=== PATIENT | female | born 1985 | race Caucasian/White ===

== ENCOUNTER 2022-12-09 09:18 | Emergency (ER) | payer MEDICAID, SELFPAY ==
[2022-12-09 09:36] VITALS: BP 103/65; PULSE 77; RESP 18; TEMP 36.3; O2SAT 97; BMI 29.4
--- NOTE | 2022-12-14 04:23 | ED_ITS ---
HPI - Eye Problem General Chief complaint: Eye Problems Stated complaint: Swollen eyes Time Seen by Provider: 12/09/22 11:46 History of Present Illness HPI Narrative: 37-year-old woman presenting to the emergency department with puffy swollen itchy irritated bilateral eyes. This began yesterday morning. Evening before had removed makeup though no new makeup for cleansers. I believe around that time also there was some exposure to a intimate lubricant that she is wondering if may have gotten to her eyes. She has not had any drainage. Has been trying chamomile tea compresses. Is not having significant pain. Discomfort though may have been alleviated somewhat with dosing of naproxen. No known allergies. Related Data Allergies Allergy/AdvReac Type Severity Reaction Status Date / Time No Known Drug Allergies Allergy Verified 12/09/22 09:52 Review of Systems Status of ROS: Reports: 6 or more systems reviewed and unremarkable except as noted in History and below PFSH PFSH Social History Smoking Status: Never smoker Do you use any of these nicotine containing products: None Second hand tobacco smoke exposure: No How often do you have a drink containing alcohol: monthly or less How many standard drinks containing alcohol do you have on a typical day: 3 or 4 How often do you have six or more drinks on one occasion: Less than monthly AUDIT-C Alcohol total score: 3 Non-prescribed substance use: denies use service: No Exam Narrative: Exam Narrative: Is pleasant. Breathing easily. Both eyes generally mildly swollen about the lids and orbital area. Only the skin. Faintly erythematous there are irregular mild papular eruptions. Extraocular movements are full and intact. There is no scleral injection. Mild nasopharyngeal congestion. Oropharynx is clear. Const: Documenting provider has reviewed patient's vital signs: yes Course Vital Signs Vital signs: Initial Vital Signs Temperature 97.4 F L 12/09/22 09:36 Temperature Source Temporal Artery Scan 12/09/22 09:36 Pulse Rate 77 12/09/22 09:36 Pulse Rhythm 12/09/22 09:36 Respiratory Rate 18 12/09/22 09:36 Blood Pressure 103/65 12/09/22 09:36 Blood Pressure Mean 77 12/09/22 09:36 Blood Pressure Position Sitting 12/09/22 09:36 Pulse Oximetry 97 12/09/22 09:36 Oxygen Delivery Method 12/09/22 09:36 Vital Signs Temperature 97.4 F L 12/09/22 09:36 Pulse Rate 77 12/09/22 09:36 Respiratory Rate 18 12/09/22 09:36 Blood Pressure 103/65 12/09/22 09:36 Pulse Oximetry 97 12/09/22 09:36 Oxygen Delivery Method 12/09/22 09:36 Temperature 97.4 F L 12/09/22 09:36 Pulse Rate 77 12/09/22 09:36 Respiratory Rate 18 12/09/22 09:36 Blood Pressure 103/65 12/09/22 09:36 Pulse Oximetry 97 12/09/22 09:36 Oxygen Delivery Method 12/09/22 09:36 MDM - Eye Problem MDM Narrative Medical decision making narrative: Does not appear to be involvement of conjunctiva or eyes themselves. Does appear to be limited to the surrounding skin. Recommending hydrocortisone cream See patient discharge plan Discharge Plan Discharge Clinical Impression: Allergic reaction Patient Disposition: Home, Self-Care Condition: Stable Additional Instructions: I would apply to the eyelids/skin surrounding your eyes 2.5% hydrocortisone cream if you can find it. 1% should help as well. Apply this 3 times a day for up to 5 days. Inside the eye I would lay 1 cm ribbon of generic eye ointment maybe 4 times daily as needed; though it appears that most of the problem is on the skin around your eye. I do not see evidence of cellulitis/bacterial secondary infection. Can discontinue the treatments above once feeling better. Maybe continue the hydrocortisone cream for a day beyond feeling/looking really better. Be seen for marked increase in swelling/redness/heat/pain. Aplicar?a a los p?rpados / piel que rodea los ojos crema de hidrocortisona al 2,5% si puede encontrarla. El 1% tambi?n deber?a ayudar. Aplicar esto 3 veces al d?a tate un m?ximo de 5 d?as. Dentro del toñito pondr?a valdez cinta de 1 cm de aziza?ento gen?rico para los ojos, usha vez 4 veces al d?a, seg?n fuera necesario; Aunque parece que la mayor parte del problema est? en la piel alrededor del toñito. No veo evidencia de celulitis/infecci?n secundaria bacteriana. Puede suspender los tratamientos anteriores valdez vez que se sienta mejor. Usha vez contin?e con la crema de hidrocortisona por un d?a m?s all? de sentirse / verse realmente mejor. Ser visto para un aumento marcado en la hinchaz?n / enrojecimiento / calor / dolor. Stand Alone Forms: [facility] Info Instructions
== END 2022-12-09 12:35 | disposition home or self-care (01) ==
LOC: ED 12:19
PROVIDERS: Emergency Provider Family Medicine; PCP Family Medicine
DX: H57.89 Other specified disorders of eye and adnexa (principal); T78.40XA Allergy, unspecified, initial encounter
CPT/HCPCS: 99283; T1013

== ENCOUNTER 2023-05-02 10:43 | Emergency (ER) | payer MEDICAID, SELFPAY ==
[2023-05-02] VITALS (7 sets, daily range): BP systolic 105–117; BP diastolic 59–69; PULSE 108–120; RESP 20–24; TEMP 37–38.5; O2SAT 95–97
--- NOTE | 2023-05-02 11:35 | CRLHL7_ITS ---
For Patients: As a result of the Century Cures Act, medical imaging exams and procedure reports are released immediately into your electronic medical record. You may view this report before your referring provider. If you have questions, please contact your health care provider. INDICATION: Right lower quadrant pain. History of cholecystectomy and . TECHNIQUE: CT of the abdomen and pelvis with 72 cc Isovue 370 IV contrast. Coronal and sagittal reconstructions. COMPARISON: CT of the abdomen and pelvis 03/02/2022. FINDINGS: The liver is enlarged measuring 19.8 cm in length. Moderate diffuse hepatic steatosis. The spleen is enlarged measuring 14.2 cm in AP dimension. Cholecystectomy. No biliary dilation. The pancreas and adrenal glands are negative. Hepatic and portal veins are patent. There are patchy areas of decreased attenuation throughout the right kidney suspicious for pyelonephritis. No discrete renal abscess. Minimal perinephric fat stranding with urothelial enhancement of the right renal pelvis and right ureter. Normal enhancement of the left kidney. No hydronephrosis or ureteral dilation. No obstructing urinary calculi identified. Mild bladder wall thickening. No small bowel dilation. Mild amount of stool throughout the colon. Negative appendix. No intraperitoneal free air or fluid. No lymphadenopathy. No adnexal mass. Uterus is unremarkable. The bones are unremarkable. Mild bibasilar atelectasis. IMPRESSION: 1. Findings suspicious for right-sided pyelonephritis. Mild bladder wall thickening. Correlate with urinalysis. 2. Hepatosplenomegaly with moderate hepatic steatosis. Please note that all CT scans at this facility use dose modulation, iterative reconstruction, and/or weight-based dosing when appropriate to reduce radiation dose to as low as reasonably achievable. Dictated by Lindsay Jay MD @ 05/02/2023 2:18:19 PM (Electronically Signed)
--- NOTE | 2023-05-02 11:35 | CRLHL7_ITS ---
For Patients: As a result of the Century Cures Act, medical imaging exams and procedure reports are released immediately into your electronic medical record. You may view this report before your referring provider. If you have questions, please contact your health care provider. INDICATION: Dizziness. COMPARISON: None. TECHNIQUE: CT of the head without IV contrast. Coronal and sagittal reconstructions. FINDINGS: No intracranial hemorrhage, mass effect, or evidence of acute infarct. No midline shift. No abnormal extra-axial fluid collections. Normal caliber ventricular system. Physiologic basal ganglia calcifications. Orbits and extraocular muscles are symmetric. The visualized paranasal sinuses and mastoid air cells are clear. No acute fracture identified. Soft tissues are unremarkable. IMPRESSION: No acute intracranial findings. Please note that all CT scans at this facility use dose modulation, iterative reconstruction, and/or weight-based dosing when appropriate to reduce radiation dose to as low as reasonably achievable. Dictated by Lindsay Jay MD @ 05/02/2023 2:47:53 PM (Electronically Signed)
--- NOTE | 2023-05-02 11:47 | ED_ITS ---
HPI - General Adult General Time Seen by Provider: 11:30 Date Seen: 05/02/23 Chief complaint: Abdominal Pain Stated complaint: Post-op abdominal pain, vomiting Time Seen by Provider: 05/02/23 11:04 Source: patient and character impersonator Mode of arrival: ambulatory History of Present Illness HPI narrative: Patient is a 38-year-old female with no pertinent medical problems presenting to emergency department for abdominal pain and dizziness. Patient states for the past 2 days she has been having dizziness and right lower quadrant pain. She states it all started after she took a medication as given to her after she had a biopsy of a mass to her left arm. Symptoms are been getting worse. She is up near drinking much because of the abdominal pain and nausea. She has not vomited yet. Patient states she has never had symptoms like this before. No previous abdominal surgeries. She states the dizziness goes away when she close her eyes. Whenever she tries to open them she gets very dizzy. Patient states it feels like the room is spinning. Is also complaining of a headache. Denies weakness, numbness, lightheadedness, chest pain, shortness of breath. She has had intermittent fevers. Has not taken any medication for it today. Related Data Home Medications Medication Instructions Recorded Confirmed citalopram 20 mg tablet mg PO 05/02/23 trazodone 50 mg tablet 50 mg PO QPM 05/02/23 05/02/23 Previous Rx's Medication Instructions Recorded meclizine 25 mg tablet 25 mg PO QID #28 tabs 05/02/23 ondansetron 4 mg disintegrating 4 mg PO Q6H PRN nausea and 05/02/23 tablet vomiting #20 tabs sulfamethoxazole 800 1 tab PO BID #28 tabs 05/02/23 mg-trimethoprim 160 mg tablet (Bactrim DS) Allergies Allergy/AdvReac Type Severity Reaction Status Date / Time No Known Drug Allergies Allergy Verified 12/09/22 09:52 Review of Systems Status of ROS: Reports: 10 or more systems reviewed and unremarkable except as noted in History and below [facility] Social History Smoking Status: Never smoker Do you use any of these nicotine containing products: None Second hand tobacco smoke exposure: No How often do you have a drink containing alcohol: monthly or less How many standard drinks containing alcohol do you have on a typical day: 3 or 4 How often do you have six or more drinks on one occasion: Less than monthly AUDIT-C Alcohol total score: 3 Non-prescribed substance use: denies use service: No Exam Narrative: Exam Narrative: Const: Well-nourished, Well-developed, in mild distress Eyes: PERRL, no conjunctival injection, and symmetrical lids ENMT: Atraumatic external nose and ears. Moist mucous membranes. Neck: Symmetric, trachea midline, No thyromegaly. CVS: RRR, No murmurs or gallops. Peripheral pulses 2+ and equal in all extremities RESP: Unlabored respiratory effort. Clear to auscultation bilaterally. GI: Nontender/Nondistended, No rebound or guarding. MSK:Extremities w/o deformity, Normal Active ROM Skin: Warm, Dry. No rashes or lesions. Neuro: Normal Muscle tone, Cranial nerves 2-12 grossly intact, normal [id number], normal [id number], normal gait, normal strength 5/5 upper lower extremities bilaterally, normal sensation upper and lower extremities bilaterally, normal rapid alternating movements. Hints exam shows normal test of skew and head impulse but she does have bidirectional nystagmus Psych: Awake, Alert, & Oriented x3. Appropriate mood and affect. Const: Vital Signs, click to edit/add: Vital Signs - 24 hr 05/02/23 11:05 05/02/23 13:35 05/02/23 14:00 Temperature 101.1 F H 99.0 F Pulse Rate [Right Pulse Oximeter] 120 H 110 H Respiratory Rate 20 24 Blood Pressure [Ri ght Upper Arm] 112/69 106/59 L 105/62 Pulse Oximetry 95 96 Oxygen Delivery Me thod Room Air Room Air 05/02/23 14:30 05/02/23 14:53 05/02/23 15:30 Temperature 98.6 F 98.8 F Pulse Rate [Right Pulse Oximeter] 108 H 120 H Respiratory Rate Blood Pressure [Ri ght Upper Arm] 117/67 Pulse Oximetry 96 97 Oxygen Delivery Me thod Room Air 05/02/23 16:35 Temperature 101.3 F H Pulse Rate [Right Pulse Oximeter] Respiratory Rate Blood Pressure [Ri ght Upper Arm] Pulse Oximetry Oxygen Delivery Me thod Course Vital Signs Vital signs: Initial Vital Signs Temperature 101.1 F H 05/02/23 11:05 Temperature Source Temporal Artery Scan 05/02/23 11:05 Pulse Rate 120 H 05/02/23 11:05 Respiratory Rate 20 05/02/23 11:05 Blood Pressure 112/69 05/02/23 11:05 Blood Pressure Mean 83 05/02/23 11:05 Blood Pressure Position Sitting 05/02/23 11:05 Pulse Oximetry 95 05/02/23 11:05 Oxygen Delivery Method Room Air 05/02/23 11:05 Vital Signs Temperature 101.1 F H 05/02/23 11:05 Pulse Rate 120 H 05/02/23 11:05 Respiratory Rate 20 05/02/23 11:05 Blood Pressure 112/69 05/02/23 11:05 Pulse Oximetry 95 05/02/23 11:05 Oxygen Delivery Method Room Air 05/02/23 11:05 Temperature 101.3 F H 05/02/23 16:35 Pulse Rate 120 H 05/02/23 15:30 Respiratory Rate 24 05/02/23 13:35 Blood Pressure 117/67 05/02/23 14:30 Pulse Oximetry 97 05/02/23 15:30 Oxygen Delivery Method Room Air 05/02/23 14:30 Medical Decision Making MDM Narrative Medical decision making narrative: Patient is a 38-year-old female with no pertinent medical issues presenting to the emergency department for dizziness and Crestor quadrant abdominal pain. She is more concerned about the dizziness and states she has been having worsening symptoms for the past 2 days since she took a citalopram tablet. She states this 1st time she has ever taken it. It was recently prescribed her by her doctor. She states she has never had symptoms this bad before. She is also having right lower quadrant abdominal pain with an intermittent fever and nausea. She has not vomited. Meds tonight you are drinking much as normal. I did to enhance examined she has by traction and statements. This was concerning for central cause of her symptoms. I did order head CT. Also had abdominal pelvis CT with IV contrast to look for signs of appendicitis. She meets meets SIRS so lactate, CBC, CMP, urinalysis, troponin, EKG were all ordered. Also will give her Toradol for the pain, Zofran for the nausea, and meclizine for the dizziness. A L of normal saline was given. She is not hypotensive and 30 mL/kilos of fluids were not necessary at this time. Patient's lab work returned showing a lactic acid of 1.1. She has a white blood cell count of 13. Her sodium and potassium was slightly low and potassium was replenished. After the medication the patient it was starting to feel better and was less dizzy. She cannot keep her eyes open as long as the lights are off. The lights turned on she does start to get dizzy again. She states she feels asymptomatic right now at this time but does note symptoms come back whe never she turns her head to the right. After speaking to her more notes she has always had this take this like this. She has had for as long as he has no nourished she has seen several doctors for it and no one knows why it occurs but this is her normal. Patient states she has been having some issues with vertigo for the past few weeks but went away until suddenly came back a couple days ago. Considering all this it makes me much more likely to believe she has a peripheral vertigo versus central vertigo. The head CT has been ordered though. CT of the head returned showing no concerning abnormalities. I attempted the Ricardo's maneuver but patient was unable to tolerate it. Patient's CT scan of the abdomen pelvis shows concern for pyelonephritis. We did do a urinalysis which shows signs of a UTI. With all this and her fever I do find it necessary to start on antibiotics for pyelonephritis. She is otherwise looking well and healthy. Filled the symptoms could be exacerbating her vertigo. I did speak to her about admission versus discharge for her symptoms. They state they were comfortable discharging home and will see her primary care provider on Friday or Friday. I gave her strict return precautions. I discharged her home with meclizine, Bactrim, Zofran. Patient both state they understand and agree with this plan. Lab Data Labs: Lab Results 05/02/23 05/02/23 05/02/23 Range/Units 12:25 12:26 14:06 WBC 13.13 H (4.50-11.00) K/uL RBC 3.23 L (4.00-5.20) m/uL Hgb 9.7 L (12.0-16.0) gm/dL Hct 27.5 L (33.0-51.0) % MCV 85 (80-100) fL MCH 30 (26-34) pg MCHC 35 (32-36) gm/dL RDW Coeff of [place]hell 13.5 (11.5-15.5) % Plt Count 199 (140-440) K/uL Neut % (Auto) 81.3 H (42.0-72.0) % Lymph % (Auto) 9.7 L (20-44) % [place] % (Auto) 8.3 (0.0-11.0) % Eos % (Auto) 0.1 (0.0-7.0) % Baso % (Auto) 0.4 (0.0-3.0) % Neut # (Auto) 10.70 H (1.7-7.0) K/uL Lymph # (Auto) 1.30 (0.90-2.90) K/uL [place] # (Auto) 1.10 H (0.00-0.90) K/UL Eos # (Auto) 0.00 (0.00-0.50) K/uL Baso # (Auto) 0.10 (0.00-0.30) K/uL Abs Immat Gran (auto) 0.00 (0.00-0.30) K/uL Imm/Tot Granulo (auto) 0.2 % Sodium 133 L (135-149) mmol/L Potassium 3.2 L (3.6-5.1) mmol/L Chloride 100 (96-114) mmol/L Carbon Dioxide 25 (20-32) mmol/L BUN 5 (5-24) mg/dL Creatinine 0.5 (0.5-1.5) mg/dL Estimated GFR 123 ml/min Glucose 136 H (60-115) mg/dL Lactate 1.1 (0.5-1.9) mmol/L Calcium 8.9 (8.4-10.6) mg/dL Magnesium 1.8 (1.5-2.6) mg/dL Total Bilirubin 1.4 (0.1-1.5) mg/dL AST 51 H (12-35) U/L ALT 95 H (4-35) U/L Alkaline Phosphatase 82 (40-150) U/L Troponin I < 0.01 L (0.01-0.04) ng/mL Total Protein 7.5 (6.0-8.3) g/dL Albumin 4.1 (3.3-5.0) g/dL HCG, Qual Negative (Negative) Urine Color (Yellow) Urine Appearance (Clear) Urine pH (5.0-8.5) Ur Specific [place] (1.000-1.030) Urine Protein (Negative) Urine Glucose (UA) (Negative) Urine Ketones (Negative) Urine Blood (Negative) Urine Nitrite (Negative) Urine Bilirubin (Negative) Urine Urobilinogen (0.2-1.0) Ur Leukocyte Esterase (Negative) Urine RBC (0-2) Urine WBC (0-5) Ur Squamous Epith Cells (None-Few) Urine Bacteria (None) Urine Yeast (None) Lab Acknowledgement Test Added 05/02/23 05/02/23 Range/Units 14:06 15:10 WBC (4.50-11.00) K/uL RBC (4.00-5.20) m/uL Hgb (12.0-16.0) gm/dL Hct (33.0-51.0) % MCV (80-100) fL MCH (26-34) pg MCHC (32-36) gm/dL RDW Coeff of Michell (11.5-15.5) % Plt Count (140-440) K/uL Neut % (Auto) (42.0-72.0) % Lymph % (Auto) (20-44) % [place] % (Auto) (0.0-11.0) % Eos % (Auto) (0.0-7.0) % Baso % (Auto) (0.0-3.0) % Neut # (Auto) (1.7-7.0) K/uL Lymph # (Auto) (0.90-2.90) K/uL [place] # (Auto) (0.00-0.90) K/UL Eos # (Auto) (0.00-0.50) K/uL Baso # (Auto) (0.00-0.30) K/uL Abs Immat Gran (auto) (0.00-0.30) K/uL Imm/Tot Granulo (auto) % Sodium (135-149) mmol/L Potassium (3.6-5.1) mmol/L Chloride (96-114) mmol/L Carbon Dioxide (20-32) mmol/L BUN (5-24) mg/dL Creatinine (0.5-1.5) mg/dL Estimated GFR ml/min Glucose (60-115) mg/dL Lactate (0.5-1.9) mmol/L Calcium (8.4-10.6) mg/dL Magnesium (1.5-2.6) mg/dL Total Bilirubin (0.1-1.5) mg/dL AST (12-35) U/L ALT (4-35) U/L Alkaline Phosphatase (40-150) U/L Troponin I (0.01-0.04) ng/mL Total Protein (6.0-8.3) g/dL Albumin (3.3-5.0) g/dL HCG, Qual (Negative) Urine Color Yellow (Yellow) Urine Appearance Slightly Cloudy A (Clear) Urine pH 7.0 (5.0-8.5) Ur Specific [place] 1.010 (1.000-1.030) Urine Protein 1+ A (Negative) Urine Glucose (UA) Negative (Negative) Urine Ketones Negative (Negative) Urine Blood 1+ A (Negative) Urine Nitrite Positive A (Negative) Urine Bilirubin Negative (Negative) Urine Urobilinogen 1.0 (0.2-1.0) Ur Leukocyte Esterase 2+ A (Negative) Urine RBC 0-2 (0-2) Urine WBC 25-50 A (0-5) Ur Squamous Epith Cells Moderate A (None-Few) Urine Bacteria Many A (None) Urine Yeast Few A (None) Lab Acknowledgement Test Added Discharge Plan Discharge Clinical Impression: Pyelonephritis Benign paroxysmal positional vertigo Qualifiers: Laterality: right Qualified Code(s): H81.11 - Benign paroxysmal vertigo, right ear Patient Disposition: Home, Self-Care Condition: Improved Instructions: Kidney Infection (ED), Benign Paroxysmal Positional Vertigo (DC) Additional Instructions: Follow-up with your primary care provider early next week preferably Friday or Friday. I prescribed you some meclizine which is for the vertigo. Take that 4 times a day for 7 days or until symptoms are resolved. I gave you Bactrim for the kidney infection. Take that for 14 days twice a day. Make sure you take all of the Bactrim. Do not stop the prescription early. I also prescribed use Zofran for your nausea. Taken as needed. Return immediately for any worsening symptoms. Glenn valdez mary anne de seguimiento con ge proveedor de atenci?n primaria a principios de la pr?xima semana, preferiblemente el lunes o el shelly. Te recet? un poco de meclizina, que es para el v?rtigo. T?hdez 4 veces al d?a tate 7 d?as o hasta que se resuelvan los s?ntomas. Te di Bactrim para la infecci?n renal. T?hdez tate 14 d?as dos veces al d?a. Aseg?rese de ulices todo el Bactrim. No suspenda la receta antes de tiempo. Tambi?n le recet? el uso de Zofran para lashae n?useas, es valdez pastilla que se desvuelve de bajo de la lengua. Tomalo seg?n sea necesario, cada 6 horas. Regrese inmediatamente para cualquier empeoramiento de los s?ntomas. Prescriptions: New meclizine 25 mg tablet 25 mg PO QID Qty: 28 0RF sulfamethoxazole-trimethoprim [Bactrim DS] 800-160 mg tablet 1 tab PO BID Qty: 28 0RF ondansetron 4 mg tablet,disintegrating 4 mg PO Q6H PRN (Reason: nausea and vomiting) Qty: 20 0RF No Action trazodone 50 mg tablet 50 mg PO QPM citalopram 20 mg tablet PO Follow Up/Referrals: Charlene Parry MD [Primary Care Provider] - [facility]: [facility] Inst[facility]
[2023-05-02] MEDS: MECLIZINE HCL 25 MG TABLET PO ×2 (12:02→16:14)
[2023-05-02] MEDS: 0.9 % SODIUM CHLORIDE 1000 ml 1,000 ML IV (12:25)
[2023-05-02] MEDS: KETOROLAC 15 MG/ML inj IVP (12:25)
[2023-05-02] MEDS: ONDANSETRON 2 MG/ML inj 4 MG IVP (12:26)
[2023-05-02 12:35] LABS: Lactate* 1.1 mmol/L (0.5-1.9)
[2023-05-02 13:01] LABS: Albumin* 4.1 g/dL (3.3-5.0); Basophils Percent Auto 0.4 % (0.0-3.0); Chloride* 100 mmol/L (96-114); Eosinophils Percent Auto 0.1 % (0.0-7.0); Hematocrit 27.5 % (33.0-51.0); Hemoglobin* 9.7 gm/dL (12.0-16.0); Immature Granulocytes Pct Auto 0.2 %; Lymphocytes Percent Auto 9.7 % (20-44); Mean Corpuscular HGB Conc 35 gm/dL (32-36); Mean Corpuscular Hemoglobin 30 pg (26-34); Mean Corpuscular Volume 85 fL (80-100); Monocytes Percent Auto 8.3 % (0.0-11.0); Neutrophils Percent Auto 81.3 % (42.0-72.0); Platelet Count* 199 K/uL (140-440); RDW Coefficient of Variation % 13.5 % (11.5-15.5); Red Blood Count 3.23 m/uL (4.00-5.20); Sodium* 133 mmol/L (135-149); White Blood Count* 13.13 K/uL (4.50-11.00)
[2023-05-02 13:02] LABS: Potassium* 3.2 mmol/L (3.6-5.1)
[2023-05-02 13:04] LABS: Alanine Aminotransferase* 95 U/L (4-35); Alkaline Phosphatase* 82 U/L (40-150); Aspartate Amino Transferase* 51 U/L (12-35); Bilirubin Total* 1.4 mg/dL (0.1-1.5); Blood Urea Nitrogen* 5 mg/dL (5-24); Calcium* 8.9 mg/dL (8.4-10.6); Carbon Dioxide* 25 mmol/L (20-32); Creatinine* 0.5 mg/dL (0.5-1.5); Estimated Glomerular Filt Rate 123 ml/min; Glucose* 136 mg/dL (60-115); Total Protein* 7.5 g/dL (6.0-8.3)
[2023-05-02 13:06] LABS: Slide Review Reflex No
[2023-05-02 13:18] LABS: Troponin I* < 0.01 ng/mL (0.01-0.04)
[2023-05-02] MEDS: LACTATED RINGERS 1000 ML 1,000 ML IV (13:56)
[2023-05-02 14:15] LABS: HCG Qualitative Serum* Negative (Negative)
[2023-05-02 14:16] LABS: Magnesium* 1.8 mg/dL (1.5-2.6)
[2023-05-02] MEDS: POTASSIUM CHLORIDE 10 MEQ CAPSULE ER 40 MEQ PO (14:49)
[2023-05-02 15:21] LABS: Appearance Urine Slightly Cloudy (Clear); Bilirubin Urine Negative (Negative); Blood Urine 1+ (Negative); Color Urine Yellow (Yellow); Glucose Urine Negative (Negative); Ketones Urine Negative (Negative); Leukocyte Esterase Urine 2+ (Negative); Nitrite Urine Positive (Negative); Protein Urine 1+ (Negative)
[2023-05-02 15:31] LABS: Bacteria Urine Many; RBC Urine 0-2 (0-2); Squamous Epithelial Cell Urine Moderate (None-Few); WBC Urine 25-50 (0-5)
--- NOTE | 2023-05-04 13:45 | ED.NURSE ---
Call to patient to discuss urine culture results. Discussed that pt's infection is resistant to Bactrim, which patient has been taking. Patient verbalizes understanding that she will switch to Keflex 500 mg, three times a day, for 10 days. Pt asks if she has to space pills apart throughout the day. Skate Boarder instructs pt to try to take pills 8 hours apart and with food if she prefers. Pt states she would like Keflex prescription sent to [facility] in [place]. Patient verbalizes understanding that news writer will call prescription in, pt will pick it up today, and pt will no longer take old prescription for Bactrim.
== END 2023-05-02 16:35 | disposition home or self-care (01) ==
PROVIDERS: Emergency Provider Student in an Organized Health Care Education/Training Program; PCP Family Medicine
DX: H81.11 Benign paroxysmal vertigo, right ear (principal); N10 Acute pyelonephritis
CPT/HCPCS: 36415; 70450; 74177; 80053; 81001; 83605; 83735; 84484; 84703; 85025; 87040; 87086; 87186; 96374; 96375; 99283; 99284; A9270; J1885; J2405; J7030; J7120; Q9967

== ENCOUNTER 2024-12-13 09:26 | Emergency (ER) | payer MEDICAID, SELFPAY ==
--- OUTSIDE RECORDS SUMMARY | 2024-12-13 09:29 | XMS_ITS | Clinical Summary ---
Author Organization [facility] Address [address] [place] [id number] Care Team Providers Care Deicer Repairer Pneumatic Name Role Phone Charlene Parry MD Primary Care Provider [phone] Allergies Active Allergy Reactions Criticality Noted Date Comments Naproxen Edema High 03/02/2022 Medications meclizine (ANTIVERT) 25 mg tabletIndicatio ns:Benign paroxysmal vertigo, bilateral Take 1 Tablet (25 mg) by mouth 3 times daily if needed for Vertigo. 30 Tablet 4 12/08/19 25 Discontinu ed(*Patien t states no longer taking) hydrOXYzine pamoate (VISTARIL) 25 mg capsuleIndicati ons:Anxiety and depression,Diff iculty sleeping Take 1-2 Capsules (25-50 mg) by mouth at bedtime if needed for Anxiety (sleep, anxiety). 90 Capsule 4 12/08/19 25 Discontinu ed(*Patien t states no longer taking) citalopram (CELEXA) 20 mg tabletIndicatio ns:Adjustment insomnia,Memory changes,Stress and adjustment reaction Take 1 Tablet (20 mg) by mouth once daily. 90 Tablet 3 4 12/08/19 25 Discontinu ed(*Patien t states no longer taking) cholecalciferol (VITAMIN D3) 50,000 unit capsuleIndicati ons:Vitamin D deficiency Take 1 Capsule (50,000 units) by mouth once weekly. 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 pylori infection 12/15/2018 Overview (12/15/2018): EGD 12/2018 H pylori infection History of delivery, currently 05/20/2017 Overview (07/15/2017): Estimated Date of Delivery: 08/01/17 Patient's last menstrual period was 10/12/2016 (exact date). Last Tdap- 05/06/17 Last Flu vaccine- 01/03/17 No Known Allergies Obstetric History T2 L2 SAB0 TAB0 Ectopic0 Multiple0 Live Births0 # Outcome Date GA Lbr Lazaro/2nd Weight Sex Delivery Anes PTL Lv 4 Current 3 Term 10/09/09 M 2 Term 09/29/06 M 1 SAB Component Latest Ref Rng & Units 01/01/2017 01/01/2017 01/01/2017 4:50 PM 4:50 PM 4:50 PM HEMOGLOBIN 12.0 - 16.0 g/dL 11.5 (L) MCV 80 - 100 fL 87 ANTIBODY SCREEN Negative Negative SPECIMEN EXPIRATION DATE/TIME 01/04/17 23:59 RUBELLA IGG ANTIBODY Positive 8.33 GLUCOSE,GESTATIONAL 65 - 139 mg/dL PATIENT STATUS HIV-1/HIV-2 ANTIBODY Non-Reactive Non-Reactive ABORH B Rh Positive HBSAG Nonreactive Nonreactive TREPONEMA PALLIDUM Negative Negative HEMOGLOBIN A1C SCREENING <6.4 % 5.2 CHLAMYDIA PROBE GLUC ANAND,FAST (GEST) 65 - 95 mg/dL GLUC ANAND,1HR (GEST) 65 - 180 mg/dL Culture Component Latest Ref Rng & Units 01/03/2017 02/11/2017 05/06/2017 HEMOGLOBIN 12.0 - 16.0 g/dL 10.2 (L) 11.1 (L) MCV 80 - 100 fL 88 90 ANTIBODY SCREEN Negative SPECIMEN EXPIRATION DATE/TIME RUBELLA IGG ANTIBODY GLUCOSE,GESTATIONAL 65 - 139 mg/dL 165 (H) PATIENT STATUS NON-FASTING HIV-1/HIV-2 ANTIBODY Non-Reactive ABORH HBSAG Nonreactive TREPONEMA PALLIDUM Negative HEMOGLOBIN A1C SCREENING <6.4 % CHLAMYDIA PROBE Negative GLUC ANAND,FAST (GEST) 65 - 95 mg/dL GLUC ANAND,1HR (GEST) 65 - 180 mg/dL Culture Component Latest Ref Rng & Units 05/09/2017 07/01/2017 HEMOGLOBIN 12.0 - 16.0 g/dL MCV 80 - 100 fL ANTIBODY SCREEN Negative SPECIMEN EXPIRATION DATE/TIME RUBELLA IGG ANTIBODY GLUCOSE,GESTATIONAL 65 - 139 mg/dL PATIENT STATUS HIV-1/HIV-2 ANTIBODY Non-Reactive ABORH HBSAG Nonreactive TREPONEMA PALLIDUM Negative HEMOGLOBIN A1C SCREENING <6.4 % CHLAMYDIA PROBE GLUC ANAND,FAST (GEST) 65 - 95 mg/dL 78 GLUC ANAND,1HR (GEST) 65 - 180 mg/dL 192 (H) Culture No Group B Streptococcus isolated. Past Medical History: Diagnosis Date Encounter for supervision of other normal , first trimester 01/01/2017 Past Surgical History: Procedure Laterality Date SECTION x2 No data on file. Problems (from 01/01/17 to present) No problems associated with this episode. America Mariano RNC.....07/15/2017 2:58 PM Encounter for supervision of other normal , first trimester 01/01/2017 Delayed gastric emptying 11/12/2016 Encounters Date Type Department Care Team Description 12/13/2024 Nurse Triage [address] [address] Charlene Parry MD Diarrhea 12/08/2024 1:00 PM SPREADER Ancillary Procedure [facility] [address] [place] [address] Arrived 12/08/2024 11:10 AM SPREADER Office Visit [address] [address] Lilliana Ellis MD Vaginal Itching (6 days ) 12/08/2024 Travel 12/06/2024 Nurse Triage [address] [address] Charlene Parry MD Vaginal Problem from Last 3 Months Immunizations Name Administration Dates Next Due COVID-19 VACCINE SPIKEVAX (M ODERNA 50MCG/0.5ML) 12YO+ PFS 08/03/2024 COVID-19 vaccine (SnaptripBio NTech 30mcg/0.3mL) PF, MDV 10/11/2021 INFLUENZA, IIV3 PF (AGE >= 6 MO) 08/03/2024 Influenza, IIV4 07/15/2023,,07/25/2020,01/04/20 17 Tdap 05/06/2017 Family History Medical History Relation Name Comments Diabetes Father Autoimmune disease No Family History Cancer No Family History Relation Name Status Comments Father Social History Tobacco Use Types Packs/Day Years Used Date Smoking Tobacco: Never Smokeless Tobacco: Never Tobacco Cessation:Counseling Given: Yes Alcohol Use Standard Drinks/Week Comments No 0 (1 standard drink = 0.6 oz pur e alcohol) special occasions PHQ-2 Answer Date Recorded PHQ-2 TOTAL SCORE 3 06/18/2023 Social Connections Answer Date Recorded Do you often feel lonely or isolated from those around you? 0 12/08/2024 Financial Resource Strain Answer Date R ecorded Difficulty of Paying Living Expenses Not on file 12/08/2024 Difficulty of Paying Living Expenses 3 12/08/2024 Food Insecurity Answer Date Recorded Do you worry your food will run out before you are able to buy more? 2 12/08/2024 Transportation Needs Answer Date Record ed Does lack of transportation keep you from medica l appointments? 2 12/08/2024 Does lack of transportation keep you from work, meetings or getting things that you need? 2 12/08/2024 Housing Stability Answer Date Recorded What is your housing situation today? 1 12/08/2024 Utilities Answer Date Recorded Do you have trouble paying f or utilities (for example, heat, electricity, water, phone)? 2 12/08/2024 Comments No Sex and Gender Information Value Date Recorded Sex Assigned at Not on file Legal Sex Female 4:02 PM SPREADER Gender Identity Not on file Sexual Orientation Not on file Obstetrics History Para Term AB IAB SAB Ectopic Multiple Livin g Live Births 4 2 2 1 1 2 Date Outcome GA Total Labor Labor/2nd/3rd Weight Sex Type Anes PTL Nancy A1 A5 Name Clin SAB 006 Term M C-Sect ion 009 Term M C-Sect ion Last Filed Vital Signs Vital Sign Reading Time Taken Comments Blood Pressure 105/69 12/08/2024 11:04 AM SPREADER Pulse 87 12/08/2024 11:04 AM SPREADER Temperature 37 C (98.6 F) 02/16/2019 2:08 PM CDT Respiratory Rate 18 11/27/2018 10:02 AM SPREADER Oxygen Saturation 99% 12/08/2024 11:04 AM SPREADER Inhaled Oxygen Concentration - - Weight 67.1 kg (148 lb) 12/08/2024 11:04 AM SPREADER Height 147.3 cm (4' 10) 06/18/2023 9:51 AM CDT Body Mass Index 30.93 06/18/2023 9:51 AM CDT Plan of Treatment Upcoming Encounters Date Type Department Care Team (Late st Contact Info) Description 12/29/2024 11:15 AM CDT Office Visit [facility] [address] [place] [address] Charlene Parry MD [address] [place] [address] Health Maintenance Due Date Last Done Comments BMI (ht and wt on same day) for age 18+ 09/10/2022 09/10/2021, 08/07/2021, 07/25/2020, Additional history exists Depression screening for age 12+ 06/20/2024 06/20/2023, 06/19/2023, 06/18/2023, Additional history exists Pap test for age 21-65 08/07/2026 1, 08/07/2021, 01/03/2017 Tetanus booster 05/06/2027 05/06/2017 Tdap Completed 05/06/2017 HIV for age 15-65 Completed 10/02/2021, 01/01/2017 Hepatitis C screening for age 18-79 Completed 06/18/2023 COVID-19 vaccine series Completed 08/03/20 24, 10/11/2021, 03/08/2021, Additional history exists Influenza for age 9-49 Completed 4, 07/15/2023, 07/31/2021, Additional history exists Pneumococcal series for age 6-49 Aged Out No longer eligible based on patient's age to complete this topic Procedures Procedure Name Priority Date/Time Associated Diagnosis Comments CT ABDOMEN PELVIS W STAT 12/08/2024 1 2:52 PM SPREADER Abdominal pain, RLQ (right lower quadrant) GC CHLAMYDIA TRACH PROBE Routine 12/08/2024 12:28 PM SPREADER Vaginal discharge TRICHOMONAS, JACKSON, AND BACTERIAL VAGINOSIS BY ZEN Routine 12/08/2024 12:28 PM SPREADER Vaginal discharge ANTI HCV Routine 06/18/2023 10:25 AM CDT Need for hepatitis C screening test ANTI HIV 1/2 Routine 10/02/2021 2:01 PM SPREADER Lymphadenopathy HPV HIGH RISK Routine 08/07/2021 1:45 PM CDT Screening for cervical cancer from Last 3 Months or Most Recently Relevant to Health Maintenance Results * CT ABDOMEN PELVIS W (12/08/2024 12:52 PM SPREADER) Anatomical Region Laterality Modality Abdomen, Pelvis, AORTA, LIVER, SPLEEN Computed Tomography 12/08/2024 1:07 PM SPREADER Impressions 12/08/2024 1:07 PM SPREADER 1. Normal appendix. No acute appendicitis. 2. Questionable wall thickening and hyperenhancement involving loops of nondistended, fluid-filled small bowel diffusely, raising the possibility of an underlying infectious versus inflammatory enteritis. No bowel obstruction. 3. Otherwise, no acute abdominopelvic findings. 4. Diffuse hepatic steatosis. Please note that all CT scans at this facility use dose modulation, iterative reconstruction, and/or weight-based dosing when appropriate to reduce radiation dose to as low as reasonably achievable. Dictated by Kranthi Siddiqui MD @ 12/08/2024 1:07:17 PM (Electronically Signed) Narrative 12/08/2024 1:07 PM SPREADER For Patients: As a result of the Century Cures Act, medical imaging exams and procedure reports are released immediately into your electronic medical record. You may view this report before your referring provider. If you have questions, please contact your health care provider. INDICATION: Abdominal pain. TECHNIQUE: Multiplanar CT examination of the abdomen and pelvis was performed after the administration of 100 mL Omnipaque 350 intravenous contrast. COMPARISON: CT chest abdomen and pelvis 09/17/2021. FINDINGS: Lower chest: No focal consolidation. Normal heart size. No pleural effusions or pneumothorax. Subsegmental atelectasis. Liver: Diffuse hepatic steatosis. Gallbladder: Cholecystectomy. Biliary: Unremarkable. Pancreas: Within normal limits. Spleen: Unremarkable. Adrenal glands: Unremarkable. Renal/ureters/bladder: Normal in size and symmetrically enhancing. No obstructive uropathy. No hydronephrosis or obstructive urinary calculi. No suspicious renal masses. The ureters appear unremarkable. The bladder is within normal limits. Pelvis: Unremarkable uterus. No adnexal masses. Gastrointestinal: Questionable wall hyper enhancement and thickening involving loops of nondistended fluid-filled small bowel diffusely. No bowel obstruction. Normal appendix. Colonic diverticulosis. Mild colonic stool burden. Vasculature: No aortic aneurysm. The portal vein remains patent. No significant atherosclerotic calcifications. Lymph nodes: No pathologic lymphadenopathy by size criteria. Peritoneum: No free fluid or pneumoperitoneum. No drainable fluid collections. Abdominal wall/soft tissues: Unremarkable. Bones: No acute osseous abnormalities. Procedure Note Kranthi Siddiqui, DO - 12/08/2024 For Patients: As a result of the Century Cures Act, medical imagingexams and procedure reports are released immediately into your electronicmedical record. You may view this report before your referring provider.If you have questions, please contact your health care provider. INDICATION: Abdominal pain. TECHNIQUE: Multiplanar CT examination of the abdomen and pelvis was performed afterthe administration of 100 mL Omnipaque 350 intravenous contrast. COMPARISON: CT chest abdomen and pelvis 09/17/2021. FINDINGS: Lower chest: No focal consolidation. Normal heart size. No pleuraleffusions or pneumothorax. Subsegmental atelectasis. Liver: Diffuse hepatic steatosis. Gallbladder: Cholecystectomy. Biliary: Unremarkable. Pancreas: Within normal limits. Spleen: Unremarkable. Adrenal glands: Unremarkable. Renal/ureters/bladder: Normal in size and symmetrically enhancing. Noobstructive uropathy. No hydronephrosis or obstructive urinary calculi. Nosuspicious renal masses. The ureters appear unremarkable. The bladder iswithin normal limits. Pelvis: Unremarkable uterus. No adnexal masses. Gastrointestinal: Questionable wall hyper enhancement and thickeninginvolving loops of nondistended fluid-filled small bowel diffusely. Nobowel obstruction. Normal appendix. Colonic diverticulosis. Mild colonicstool burden. Vasculature: No aortic aneurysm. The portal vein remains patent. Nosignificant atherosclerotic calcifications. Lymph nodes: No pathologic lymphadenopathy by size criteria. Peritoneum: No free fluid or pneumoperitoneum. No drainable fluidcollections. Abdominal wall/soft tissues: Unremarkable. Bones: No acute osseous abnormalities. IMPRESSION: 1. Normal appendix. No acute appendicitis. 2. Questionable wall thickening and hyperenhancement involving loops ofnondistended, fluid-filled small bowel diffusely, raising the possibilityof an underlying infectious versus inflammatory enteritis. No bowelobstruction. 3. Otherwise, no acute abdominopelvic findings. 4. Diffuse hepatic steatosis. Please note that all CT scans at this facility use dose modulation,iterative reconstruction, and/or weight-based dosing when appropriate toreduce radiation dose to as low as reasonably achievable. Dictated by Kranthi Siddiqui MD @ 12/08/2024 1:07:17 PM (Electronically Signed) Lilliana Ellis MD CT Fi nal Result * TRICHOMONAS, JACKSON, AND BACTERIAL VAGINOSIS BY ZEN (12/08/2024 12:28 PM SPREADER) JACKSON SPECIES Negative Negative 12:57 PM SPREADER [facility] JACKSON GLABRATA Negative Negative 12/09/2024 12:57 PM SPREADER [facility] TRICHOMONAS VVA Negative Negative 5 12:57 PM SPREADER [facility] BACTERIAL VAGINOSIS Negative Negative 12/09/2024 12:57 PM SPREADER [facility] Other VAGINAL SWAB / Unknown Non-Blood / Unknown 12/08/2024 12:28 PM SPREADER 12/08/2024 12:28 PM SPREADER Lilliana Ellis MD MICROBIOLOGY Fi nal Result [facility] [address] [place] [id number], * GC & CHLAMYDIA DNA PCR [[id number]] (12/08/2024 12:28 PM SPREADER) CHLAMYDIA PROBE Negative 1:34 PM SPREADER [facility] N GONORRHOEAE PROBE Negative 12/09/2024 1:34 PM SPREADER [facility] Other VAGINAL SWAB / Unknown Non-Blood / Unknown 12/08/2024 12:28 PM SPREADER 12/08/2024 12:28 PM SPREADER Lilliana Ellis MD MICROBIOLOGY Fi nal Result [facility] [address] [place] [id number], [place] * ANTI HCV (06/18/2023 10:25 AM CDT) Pathologist [facility] HEPATITIS C ANTIBODY Non-Reacti ve Non-React brandon 06/18/2023 7:17 PM CDT [facility] Comment:Please note, per www .CDC.gov: If a patient is known to be at high risk of HCV infection, or is symptomatic, and the physician's suspicion of HCV infection is high, HCV RNA testing is often employed and is of diagnostic value, even after an initial negative anti-HCV test result. Blood BLOOD SPECIMEN / Unknown Venipuncture / Unknown 06/18/2023 10:25 AM CDT 06/18/2023 10:28 AM CDT us Charlene Parry MD SEND OUTS Final Resul t [facility] SENDOUT [place]NAL ZIP [address] [place] [id number] * ANTI HIV 1/2 (10/02/2021 2:01 PM SPREADER) Pathologist [facility] HIV-1/HIV-2 ANTIBODY Non-Reacti ve Non-Reacti ve 10/02/2021 10:27 PM SPREADER [facility] Comment:HIV-1 p24 and HIV-1/ HIV-2 Ab not detected. Blood BLOOD SPECIMEN / Unknown Butterfly / Unknown 10/02/2021 2:01 PM SPREADER 10/02/2021 2:01 PM SPREADER us Pam Boyd MD SEND OUTS Final Res ult [facility] [address] [place] [address], * HPV HIGH RISK (08/07/2021 1:45 PM CDT) TYPE 16 Negative Negative 08/09/2021 11:32 AM CDT [facility] TYPE 18 Negative Negative 08/09/2021 11:32 AM CDT [facility] OTHER HIGH RISK TYPES Negative Negative 08/09/2021 11:32 AM CDT [facility] Other (Cervical) Non-Blood / Unknown 08/07/2021 1:45 PM CDT 08/08/2021 9:10 AM CDT Narrative [facility] - 08/09/2021 11:32 AM CDT HPV types 16, 18, 31, 33, 35, 39, 45, 51, 52, 56, 58, 59, 66 and 68 DNA were undetectable or below the pre-set threshold. Methodology: Jennifer Romulo 4800 HPV Test us Charlene Parry MD MICROBIOLOGY Final Resul t [facility] [address] [place] [address], from Last 3 Months or Most Recently Relevant to Health Maintenance Insurance [facility] Care Teams Deicer Repairer Pneumatic Relationship Specialty Start Date End Date Charlene Parry MD [address] [place] [address] PCP - General Family Practice 09/30/16
[2024-12-13 09:30] VITALS: BP 116/65; PULSE 95; RESP 16; TEMP 36.7; O2SAT 98; BMI 30.6
--- NOTE | 2024-12-13 10:11 | ED.GENADULT ---
HPI - General Adult General Date Seen: 12/13/24 Chief complaint: Abdominal Pain Stated complaint: Liver problem, vomiting, diarrhea Time Seen by Provider: 12/13/24 10:07 History of Present Illness HPI narrative: 39 yo F with a past surgical history including 3 previous C-sections, previous cholecystectomy calm a also a past medical history of fatty liver, nystagmus/vertigo, and the possible NSAID allergy. She presents to the ER today after being sent in by the phone triage nurse. She has been healthy and well lately. Her daughter was sick with influenza about 2 weeks ago. She has no known exposure to anyone with vomiting or diarrhea. She was awoken from sleep at about 4:00 a.m. this morning with an urge to have diarrhea. She has had several episodes of liquidy diarrhea. Initially they were clear brown. The last 3 episodes of diarrhea have been more dark colored. Not exactly ?black. ?. She has also had nausea and vomiting with several episodes of bright yellow emesis. No bloody emesis. No green emesis. She has not had a fever. She does have crampy abdominal pain, throughout her abdomen but most severe in the epigastrium. She does not in have any history of underlying inflammatory bowel disease or any chronic diarrhea. No recent antibiotics. She says that 1 time when she took an naproxen she had swelling, but she is not sure if she is truly allergic to naproxen and NSAIDs or not. She has been diagnosed with fatty liver disease. Her doctors been counseling her to lose weight. She says she is trying to eat healthy and exercise but it is very hard to lose weight. She has no history of other liver problems or cirrhosis Related Data Previous Rx's ?Medication ?Instructions ?Recorded hydrocodone 5 mg-acetaminophen 325 1 tab PO Q6H PRN pain #7 tabs 12/13/24 mg tablet ondansetron 4 mg disintegrating 4 mg PO Q8H PRN nausea and 12/13/24 tablet vomiting #10 tabs Allergies Allergy/AdvReac Type Severity Reaction Status Date / Time No Known Drug Allergies Allergy Verified 12/13/24 09:38 [facility] Social History Smoking Status: Never smoker Do you use any of these nicotine containing products: None Second hand tobacco smoke exposure: No How often do you have a drink containing alcohol: monthly or less How many standard drinks containing alcohol do you have on a typical day: 3 or 4 How often do you have six or more drinks on one occasion: Less than monthly AUDIT-C Alcohol total score: 3 Non-prescribed substance use: denies use service: No Exam Narrative: Exam Narrative: Constitutional: Appears well-developed and well-nourished. Alert. Conversant through [place] fruit peeler.. Non toxic. HENT: Head: Atraumatic. Nose: Nose normal. Mouth/Throat: Oral mucosa is clear but dry. Not desiccated or cracked. no trismus. Pharynx normal. Eyes: Conjunctivae normal. EOM normal. Pupils equal, round, and reactive to light. No scleral icterus. Neck: Normal range of motion. Neck supple. No tracheal deviation present. Cardiovascular: Normal rate, regular rhythm. No gallop. No friction rub. No murmur heard. Symmetric radial artery pulses Pulmonary/Chest: Effort normal. No stridor. No respiratory distress. No wheezes. No rales. No rhonchi . No tenderness. Abdominal: Soft. Bowel sounds normal. No distension. No mass. Diffuse tenderness with max tenderness in epigastrium and left upper quadrant, also quite tender in the right upper quadrant. Mild lower tenderness. No Ware sign. She has laparoscopic incisions from gallbladder surgery. She has a the lower midline incision from her previous as well as a low transverse incision from C-sections. No rebound. No guarding. Musculoskeletal: RUE: Normal range of motion. No tenderness. No deformity LUE: Normal range of motion. No tenderness. No deformity RLE: Normal range of motion. No edema. No tenderness. No deformity LLE: Normal range of motion. No edema. No tenderness. No deformity Neurological: Alert and oriented to person, place, and time. Normal strength. CN II-VII intact. No sensory deficit. GCS eye subscore is 4. GCS verbal subscore is 5. GCS motor subscore is 6. Normal coordination Skin: Skin is warm and dry. No rash noted. No pallor. Normal capillary refill. Psychiatric: Normal mood. Normal affect. Const: Vital Signs, click to edit/add: Vital Signs - 24 hr 12/13/24 09:30 Temperature 98.0 F Pulse Rate [Pulse Oximeter] 95 Respiratory Rate 16 Blood Pressure [Le ft Upper Arm] 116/65 Pulse Oximetry 98 Oxygen Delivery Me thod Room Air Course Course ED Course: Recheck-history obtained through reports analyst. Patient says she is feeling much better. Discussed laboratory workup and plans. Patient is agreeable Vital Signs Vital signs: Initial Vital Signs Temperature 98.0 F 12/13/24 09:30 Temperature Source Temporal Artery Scan 12/13/24 09:30 Pulse Rate 95 12/13/24 09:30 Respiratory Rate 16 12/13/24 09:30 Blood Pressure 116/65 12/13/24 09:30 Blood Pressure Mean 82 12/13/24 09:30 Blood Pressure Position Sitting 12/13/24 09:30 Pulse Oximetry 98 12/13/24 09:30 Oxygen Delivery Method Room Air 12/13/24 09:30 Vital Signs Temperature 98.0 F 12/13/24 09:30 Pulse Rate 95 12/13/24 09:30 Respiratory Rate 16 12/13/24 09:30 Blood Pressure 116/65 12/13/24 09:30 Pulse Oximetry 98 12/13/24 09:30 Oxygen Delivery Method Room Air 12/13/24 09:30 Temperature 98.0 F 12/13/24 09:30 Pulse Rate 95 12/13/24 09:30 Respiratory Rate 16 12/13/24 09:30 Blood Pressure 116/65 12/13/24 09:30 Pulse Oximetry 98 12/13/24 09:30 Oxygen Delivery Method Room Air 12/13/24 09:30 Medications Administered Medications: Discontinued Medications Generic Name Dose Route Start Last Admin Trade Name Freq PRN Reason Stop Dose Admin Sodium Chloride 1,000 mls @ 1,000 mls/hr 12/13/24 10:30 12/13/24 11:50 0.9 % Sodium Chloride 1000 Ml IV 12/13/24 11:29 Infused .Q1H LAURYN Infusion Loperamide HCl 4 mg 12/13/24 10:30 12/13/24 11:05 Loperamide Hcl 2 Mg Capsule PO 4 mg ONCE PRN Administration Ondansetron HCl 4 mg 12/13/24 10:30 12/13/24 10:55 Ondansetron 2 Mg/Ml Inj IVP 12/13/24 10:31 4 mg ONCE ONE Administration Medical Decision Making MDM Narrative Medical decision making narrative: This patient presents with vomiting and diarrhea associated with epigastric and generalized abdominal cramping.. The patient's symptoms and exam could be consistent with a viral GI infection. There is no high fever, severe pain, bilious or bloody emesis, blood or mucous in the stool, severe abdominal pain, or other concerning signs for a bacterial infection. No recent travel or high risk exposure for bacterial pathogen. No recent antibiotics or risk factors for C. diff. her for based on exam, I don't see any evidence for appendicitis, bowel obstruction, abscess, bowel perforation, or other surgical emergency. she does have mild leukocytosis but overall exam is reassuring. At this point would hold off on advanced imaging with CT Labs show no concerning electrolyte disturbance or renal failure[]. After meds given the patient is feeling better. At this point, the patient is non-septic appearing and well hydrated.I think the patient can be managed as an outpatient. We have discussed oral rehydration strategies. They understand and can perform the needed interventions at home. I have provided a prescription for antiemetics to facilitate oral hydration- Zofran 0 DT. Prescription for Jeddo provided for crampy pain. Opiate precautions reviewed. We have discussed the signs and symptoms of worsening dehydration. They understand the need for immediate reevaluation if any of these symptoms occur. They are also directed to obtain close outpatient follow up within 2-3 days. Lab Data Labs: Lab Results 12/13/24 Range/Units 10:55 WBC 12.40 H (4.50-11.00) K/uL RBC 4.42 (4.00-5.20) m/uL Hgb 13.1 (12.0-16.0) gm/dL Hct 37.5 (33.0-51.0) % MCV 85 (80-100) fL MCH 30 (26-34) pg MCHC 35 (32-36) gm/dL RDW Coeff of Michell 13.1 (11.5-15.5) % Plt Count 262 (140-440) K/uL Neut % (Auto) 91.0 H (42.0-72.0) % Lymph % (Auto) 5.4 L (20-44) % Dare % (Auto) 2.9 (0.0-11.0) % Eos % (Auto) 0.2 (0.0-7.0) % Baso % (Auto) 0.3 (0.0-3.0) % Neut # (Auto) 11.30 H (1.7-7.0) K/uL Lymph # (Auto) 0.70 L (0.90-2.90) K/uL Dare # (Auto) 0.40 (0.00-0.90) K/UL Eos # (Auto) 0.00 (0.00-0.50) K/uL Baso # (Auto) 0.00 (0.00-0.30) K/uL Abs Immat Gran (auto) 0.00 (0.00-0.30) K/uL Imm/Tot Granulo (auto) 0.2 % Sodium 137 (135-149) mmol/L Potassium 4.0 (3.6-5.1) mmol/L Chloride 105 (96-114) mmol/L Carbon Dioxide 20 (20-32) mmol/L Anion Gap 12 (7-15) mEq/L BUN 17 (5-24) mg/dL Creatinine 0.6 (0.5-1.5) mg/dL Estimated Creat Clear 131.60 Estimated GFR 117 ml/min Glucose 119 H (60-115) mg/dL Calcium 8.8 (8.4-10.6) mg/dL Total Bilirubin 0.9 (0.1-1.5) mg/dL AST 25 (12-35) U/L ALT 35 (4-35) U/L Alkaline Phosphatase 107 (40-150) U/L Total Protein 7.8 (6.0-8.3) g/dL Albumin 4.5 (3.3-5.0) g/dL Lipase 97 (23-300) U/L HCG, Qual Negative (Negative) Discharge Plan Discharge Clinical Impression: Abdominal pain, vomiting, and diarrhea Patient Disposition: Home, Self-Care Condition: Stable Instructions: Acute Nausea and Vomiting (DC), Acute Diarrhea (ED), Abdominal Pain (ED) Additional Instructions: Please come back to the ER right away if you have any problems, especially if you have worsening pain, uncontrolled vomiting or diarrhea, blood in your vomit or diarrhea, fever, or any other problems. I suspect that your symptoms are being caused by a viral infection. This should get better on its own within 48 hours. If your not completely improved by Thursday morning, come back to the ER or see your doctor for a recheck. Your symptoms can be contagious so to wash your hands and do not share food with other people Use the prescription nausea medication and pain medication as needed. Be careful with Jeddo because it can cause dizziness, drowsiness, constipation, and can be addictive. Prescriptions: New ondansetron 4 mg tablet,disintegrating 4 mg PO Q8H PRN (Reason: nausea and vomiting) Qty: 10 0RF hydrocodone-acetaminophen 5-325 mg tablet 1 tab PO Q6H PRN (Reason: pain) Qty: 7 0RF Follow Up/Referrals: Charlene Parry MD [Primary Care Provider] - Stand Alone Forms: Trellie Info Instructions
[2024-12-13] MEDS: ONDANSETRON 2 MG/ML inj 4 MG IVP (10:55)
[2024-12-13] MEDS: 0.9 % SODIUM CHLORIDE 1000 ml 1,000 ML IV (10:55)
[2024-12-13 11:05] LABS: Basophils Percent Auto 0.3 % (0.0-3.0); Eosinophils Percent Auto 0.2 % (0.0-7.0); Hematocrit 37.5 % (33.0-51.0); Hemoglobin* 13.1 gm/dL (12.0-16.0); Immature Granulocytes Pct Auto 0.2 %; Lymphocytes Percent Auto 5.4 % (20-44); Mean Corpuscular HGB Conc 35 gm/dL (32-36); Mean Corpuscular Hemoglobin 30 pg (26-34); Mean Corpuscular Volume 85 fL (80-100); Monocytes Percent Auto 2.9 % (0.0-11.0); Platelet Count* 262 K/uL (140-440); RDW Coefficient of Variation % 13.1 % (11.5-15.5); Red Blood Count 4.42 m/uL (4.00-5.20)
[2024-12-13] MEDS: LOPERAMIDE HCL 2 MG CAPSULE 4 MG PO (11:05)
[2024-12-13 11:07] LABS: Slide Review Reflex No
[2024-12-13 11:26] LABS: Albumin* 4.5 g/dL (3.3-5.0); Chloride* 105 mmol/L (96-114); Sodium* 137 mmol/L (135-149)
[2024-12-13 11:28] LABS: Anion Gap 12 mEq/L (7-15); Aspartate Amino Transferase* 25 U/L (12-35); Bilirubin Total* 0.9 mg/dL (0.1-1.5); Blood Urea Nitrogen* 17 mg/dL (5-24); Carbon Dioxide* 20 mmol/L (20-32); Creatinine* 0.6 mg/dL (0.5-1.5); Estimated Glomerular Filt Rate 117 ml/min
[2024-12-13 11:29] LABS: Alanine Aminotransferase* 35 U/L (4-35); Alkaline Phosphatase* 107 U/L (40-150); Calcium* 8.8 mg/dL (8.4-10.6); Glucose* 119 mg/dL (60-115); Lipase* 97 U/L (23-300); Total Protein* 7.8 g/dL (6.0-8.3)
[2024-12-13 11:58] LABS: HCG Qualitative Serum* Negative (Negative)
== END 2024-12-13 12:19 | disposition home or self-care (01) ==
PROVIDERS: Emergency Provider Emergency Medicine; PCP Family Medicine
DX: R10.9 Unspecified abdominal pain (principal); R11.10 Vomiting, unspecified; R19.7 Diarrhea, unspecified
CPT/HCPCS: 36415; 80053; 82270; 83690; 84703; 85025; 96374; 99283; 99284; A9270; J2405; J7030

== ENCOUNTER 2024-12-13 20:27 | Emergency (ER) | payer MEDICAID, SELFPAY ==
[2024-12-13 20:32] VITALS: BP 99/61; PULSE 122; RESP 16; TEMP 37.7; O2SAT 97; BMI 30.6
--- NOTE | 2024-12-13 20:38 | ED_ITS ---
HPI - Allergic Reaction General Time Seen by Provider: 20:38 <Carey Cabrera MD - Last Filed: 12/14/24 00:38> Date Seen: 12/13/24 <Carey Cabrera MD - Last Filed: 12/14/24 00:38> Chief complaint: Allergic Reaction <Carey Cabrera MD - Last Filed: 12/14/24 00:38> Stated complaint: Seen this morning for infection, has hives now <Carey Cabrera MD - Last Filed: 12/14/24 00:38> Time Seen by Provider: 12/13/24 20:38 <Carey Cabrera MD - Last Filed: 12/14/24 00:38> Source: patient, family, RN notes reviewed, old records reviewed and parts interpreter <Carey Cabrera MD - Last Filed: 12/14/24 00:38> Mode of arrival: ambulatory <Carey Cabrera MD - Last Filed: 12/14/24 00:38> Limitations: no limitations <Carey Cabrera MD - Last Filed: 12/14/24 00:38> History of Present Illness HPI narrative: Yuliana is a very pleasant 39-year-old female with history of fatty liver, nausea vomiting and diarrhea earlier today who comes to the emergency room with hives. Patient had the onset of these hives approximately 2 hours after departing our emergency room. They were over her entire body. She has had a similar reaction to Naprosyn in the past but did not receive any NSAIDs today to her knowledge. Patient notes that she is very itchy. She is not having any difficulty breathing, swallowing and she is not feeling like she her mouth tongue lips are swollen. She denies any new soaps or foods or other medications. She denies chest pain or shortness of breath. Patient had awoken earlier this morning with the urge to have a bowel movement and had some very watery bowel movements. She had a few episodes of bilious like vomiting. While in the ED she received Zofran, IV fluids and Imodium. She was feeling better and thus discharged home with Zofran ODT and [place]. 2 hours after she arrived home she had the onset of of the hives which were throughout her entire body. Patient's pain appears mostly in the epigastrium but it seems to be improved from earlier today. She continues to be afebrile. She has not had any recent travel. No history of recent antibiotics or history of C diff. <Carey Cabrera MD - Last Filed: 12/14/24 00:38> Related Data Home medications: Previous Rx's ?Medication ?Instructions ?Recorded hydrocodone 5 mg-acetaminophen 325 1 tab PO Q6H PRN pain #7 tabs 12/13/24 mg tablet ondansetron 4 mg disintegrating 4 mg PO Q8H PRN nausea and 12/13/24 tablet vomiting #10 tabs <Carey Cabrera MD - Last Filed: 12/14/24 00:38> Allergies/adverse reactions: Allergies Allergy/AdvReac Type Severity Reaction Status Date / Time No Known Drug Allergies Allergy Verified 12/13/24 22:56 <Carey Cabrera MD - Last Filed: 12/14/24 00:38> Review of Systems Status of ROS Reports: 10 or more systems reviewed and unremarkable except as noted in History and below <Carey Cabrera MD - Last Filed: 12/14/24 00:38> Const Reports: fatigue; Denies: fever or chills <Carey Cabrera MD - Last Filed: 12/14/24 00:38> Eyes Denies: change in vision <Carey Cabrera MD - Last Filed: 12/14/24 00:38> ENMT Denies: throat pain, neck pain, nasal discharge or nasal congestion <Carey Cabrera MD - Last Filed: 12/14/24 00:38> Cardio Denies: chest pain, swelling of feet/ankles or shortness of breath with exertion <Carey Cabrera MD - Last Filed: 12/14/24 00:38> Resp Denies: shortness of breath or cough <Carey Cabrera MD - Last Filed: 12/14/24 00:38> GI Reports: abdominal pain, nausea, vomiting and diarrhea <Carey Cabrera MD - Last Filed: 12/14/24 00:38> Musculo Denies: neck pain <Carey Cabrera MD - Last Filed: 12/14/24 00:38> Integ/Breast Reports: rash and itching <Carey Cabrera MD - Last Filed: 12/14/24 00:38> Neuro Denies: headache <Carey Cabrera MD - Last Filed: 12/14/24 00:38> Endo Reports: fatigue <Carey Cabrera MD - Last Filed: 12/14/24 00:38> PFSH PFS Social History: Social History Smoking Status: Never smoker Do you use any of these nicotine containing products: None Second hand tobacco smoke exposure: No How often do you have a drink containing alcohol: monthly or less How many standard drinks containing alcohol do you have on a typical day: 3 or 4 How often do you have six or more drinks on one occasion: Less than monthly AUDIT-C Alcohol total score: 3 Non-prescribed substance use: denies use service: No <Carey Cabrera MD - Last Filed: 12/14/24 00:38> Exam Narrative: Exam Narrative: With patient is somewhat sleepy but otherwise alert. EOM is full. Oral cavity with moist mucous membranes without swelling of the lips tongue. Neck is supple without lymphadenopathy. Heart with regular rate and rhythm lungs are clear abdomen is soft. Mild discomfort noted in the epigastrium. Nondistended. Lower extremities without edema. On her whole body she has areas of hives that are raised of various sizes. These include on her face on her neck on her chest arms and legs. <Carey Cabrera MD - Last Filed: 12/14/24 00:38> Const: Vital Signs, click to edit/add: Vital Signs - 24 hr 12/13/24 20:32 12/13/24 21:11 12/13/24 21:19 Temperature 100 F H Pulse Rate [Pulse Oximeter] 122 H 110 H Respiratory Rate 16 18 Blood Pressure [Ri ght Upper Arm] 99/61 107/66 Pulse Oximetry 97 98 97 Oxygen Delivery Me thod Room Air 12/13/24 22:18 12/14/24 00:28 Temperature 99.5 F Pulse Rate [Pulse Oximeter] 107 H 105 H Respiratory Rate 16 16 Blood Pressure [Ri ght Upper Arm] 102/60 101/58 L Pulse Oximetry 97 97 Oxygen Delivery Me thod Room Air Room Air <Carey Cabrera MD - Last Filed: 12/14/24 00:38> Vital Signs, click to edit/add: Vital Signs - 24 hr 12/13/24 20:32 12/13/24 21:11 12/13/24 21:19 Temperature 100 F H Pulse Rate [Pulse Oximeter] 122 H 110 H Respiratory Rate 16 18 Blood Pressure [Ri ght Upper Arm] 99/61 107/66 Pulse Oximetry 97 98 97 Oxygen Delivery Me thod Room Air 12/13/24 22:18 12/14/24 00:28 Temperature 99.5 F Pulse Rate [Pulse Oximeter] 107 H 105 H Respiratory Rate 16 16 Blood Pressure [Ri ght Upper Arm] 102/60 101/58 L Pulse Oximetry 97 97 Oxygen Delivery Me thod Room Air Room Air <Abilio Galicia DO - Last Filed: 12/14/24 01:51> Documenting provider has reviewed patient's vital signs: yes <Carey Cabrera MD - Last Filed: 12/14/24 00:38> Course Course ED Course: Differential diagnosis includes but is not limited to medication allergy, viral rash. Patient does not appear to have taken any NSAIDs today. Given the very pruritic nature of this rash, will use Benadryl 50 mg and dexamethasone 10 mg. Will recheck labs today with a comprehensive panel. Patient did not have CT or earlier because she was feeling better. Do not feel need to give epinephrine at this time patient has a patent airway without any mucous membranes swelling. <Carey Cabrera MD - Last Filed: 12/14/24 00:38> Reevaluation(s) Reevaluation #1: Patient noted to be remarkably better with resolution of her hives. She is feeling much better. However, her liver function tests have jumped up quite a bit from earlier today. She now has an AST of 471, ALT of 327 and her direct bilirubin is elevated at 1.1. She has an absent gallbladder. She has a negative COVID influenza and RSV. She has a negative strep. At this time hepatitis-B and C are negative. Hepatitis A is a send out and this has been ordered. Because patient has had resolution of all her hives will recheck her labs including a CBC, LFTs and basic panel. Lipase and CRP. <Carey Cabrera MD - Last Filed: 12/14/24 00:38> Vital Signs Vital signs: Initial Vital Signs Temperature 100 F H 12/13/24 20:32 Temperature Source Temporal Artery Scan 12/13/24 20:32 Pulse Rate 122 H 12/13/24 20:32 Pulse Strength 2+ Slightly Diminished 12/13/24 20:32 Respiratory Rate 16 12/13/24 20:32 Blood Pressure 99/61 12/13/24 20:32 Blood Pressure Mean 73 12/13/24 20:32 Blood Pressure Position Sitting 12/13/24 20:32 Pulse Oximetry 97 12/13/24 20:32 Oxygen Delivery Method Room Air 12/13/24 20:32 Vital Signs Temperature 100 F H 12/13/24 20:32 Pulse Rate 122 H 12/13/24 20:32 Respiratory Rate 16 12/13/24 20:32 Blood Pressure 99/61 12/13/24 20:32 Pulse Oximetry 97 12/13/24 20:32 Oxygen Delivery Method Room Air 12/13/24 20:32 Temperature 99.5 F 12/13/24 22:18 Pulse Rate 105 H 12/14/24 00:28 Respiratory Rate 16 12/14/24 00:28 Blood Pressure 101/58 L 12/14/24 00:28 Pulse Oximetry 97 12/14/24 00:28 Oxygen Delivery Method Room Air 12/14/24 00:28 <Carey Cabrera MD - Last Filed: 12/14/24 00:38> Initial Vital Signs Temperature 100 F H 12/13/24 20:32 Temperature Source Temporal Artery Scan 12/13/24 20:32 Pulse Rate 122 H 12/13/24 20:32 Pulse Strength 2+ Slightly Diminished 12/13/24 20:32 Respiratory Rate 16 12/13/24 20:32 Blood Pressure 99/61 12/13/24 20:32 Blood Pressure Mean 73 12/13/24 20:32 Blood Pressure Position Sitting 12/13/24 20:32 Pulse Oximetry 97 12/13/24 20:32 Oxygen Delivery Method Room Air 12/13/24 20:32 Vital Signs Temperature 100 F H 12/13/24 20:32 Pulse Rate 122 H 12/13/24 20:32 Respiratory Rate 16 12/13/24 20:32 Blood Pressure 99/61 12/13/24 20:32 Pulse Oximetry 97 12/13/24 20:32 Oxygen Delivery Method Room Air 12/13/24 20:32 Temperature 99.5 F 12/13/24 22:18 Pulse Rate 105 H 12/14/24 00:28 Respiratory Rate 16 12/14/24 00:28 Blood Pressure 101/58 L 12/14/24 00:28 Pulse Oximetry 97 12/14/24 00:28 Oxygen Delivery Method Room Air 12/14/24 00:28 <Abilio Galicia DO - Last Filed: 12/14/24 01:51> Medications Administered Medications: Discontinued Medications Generic Name Dose Route Start Last Admin Trade Name Freq PRN Reason Stop Dose Admin Dexamethasone 10 mg 12/13/24 20:44 12/13/24 20:59 Dexamethasone 10 Mg/Ml Inj IVP 12/13/24 20:45 10 mg ONCE ONE Administration Diphenhydramine HCl 50 mg 12/13/24 20:44 12/13/24 20:59 Diphenhydramine 50 Mg/Ml Inj IVP 12/13/24 20:45 50 mg ONCE ONE Administration Sodium Chloride 1,000 mls @ 1,000 mls/hr 12/13/24 20:46 12/13/24 22:16 0.9 % Sodium Chloride 1000 Ml IV 12/13/24 21:45 Infused .Q1H LAURYN Infusion <Carey Cabrera MD - Last Filed: 12/14/24 00:38> Discontinued Medications Generic Name Dose Route Start Last Admin Trade Name Freq PRN Reason Stop Dose Admin Dexamethasone 10 mg 12/13/24 20:44 12/13/24 20:59 Dexamethasone 10 Mg/Ml Inj IVP 12/13/24 20:45 10 mg ONCE ONE Administration Diphenhydramine HCl 50 mg 12/13/24 20:44 12/13/24 20:59 Diphenhydramine 50 Mg/Ml Inj IVP 12/13/24 20:45 50 mg ONCE ONE Administration Sodium Chloride 1,000 mls @ 1,000 mls/hr 12/13/24 20:46 12/13/24 22:16 0.9 % Sodium Chloride 1000 Ml IV 12/13/24 21:45 Infused .Q1H LAURYN Infusion <Abilio Galicia DO - Last Filed: 12/14/24 01:51> MDM - Allergic Reaction MDM Narrative Medical decision making narrative: This patient will be signed out to my partner Dr. Galicia for review of the recheck of laboratory values and final disposition. <Carey Cabrera MD - Last Filed: 12/14/24 00:38> Repeat lab work returned showing her LFTs have risen slightly more. Her lipase is elevated at 557. Does not meet criteria for pancreatitis. Her pain is more around her umbilical region and she denies much pain in her epigastric. Symptoms have fully resolved she states she is feeling much better. Hepatitis-A is currently pending. This may all be a reaction from possible hepatitis A although she has not had any recent travel or contact with people who had travel in the past few months. With her otherwise stable appearance I did speak to the on-call [facility] hospitalist Dr. Solo and explained the patients status. At this time he does believe the patient is likely safe for discharge but does need close follow-up. The patient does have a primary care provider that she states she can follow-up with. I explained to her that the need to follow-up with the next 1-2 days. I also explained the importance of returning to the emergency department if she starts developing worsening symptoms. She denies any Tylenol use and I made it very clear that she should not take any Tylenol until this has fully resolved. Her and her family state they understand. <Abilio Galicia DO - Last Filed: 12/14/24 01:51> Lab Data Labs: Lab Results 12/13/24 12/13/24 12/13/24 Range/Units 20:45 21:00 23:35 WBC (4.50-11.00) K/uL RBC (4.00-5.20) m/uL Hgb (12.0-16.0) gm/dL Hct (33.0-51.0) % MCV (80-100) fL MCH (26-34) pg MCHC (32-36) gm/dL RDW Coeff of Michell (11.5-15.5) % Plt Count (140-440) K/uL Neut % (Auto) (42.0-72.0) % Lymph % (Auto) (20-44) % [place] % (Auto) (0.0-11.0) % Eos % (Auto) (0.0-7.0) % Baso % (Auto) (0.0-3.0) % Neut # (Auto) (1.7-7.0) K/uL Lymph # (Auto) (0.90-2.90) K/uL [place] # (Auto) (0.00-0.90) K/UL Eos # (Auto) (0.00-0.50) K/uL Baso # (Auto) (0.00-0.30) K/uL Abs Immat Gran (auto) (0.00-0.30) K/uL Imm/Tot Granulo (auto) % Sodium 133 L (135-149) mmol/L Potassium 3.4 L (3.6-5.1) mmol/L Chloride 103 (96-114) mmol/L Carbon Dioxide 19 L (20-32) mmol/L Anion Gap 11 (7-15) mEq/L BUN 13 (5-24) mg/dL Creatinine 0.5 (0.5-1.5) mg/dL Estimated Creat Clear 157.93 Estimated GFR 122 ml/min Glucose 155 H (60-115) mg/dL Calcium 8.3 L (8.4-10.6) mg/dL Total Bilirubin 2.6 H (0.1-1.5) mg/dL Direct Bilirubin 1.1 H (0.0-0.5) mg/dL AST 471 H (12-35) U/L ALT 327 H (4-35) U/L Alkaline Phosphatase 141 (40-150) U/L C-Reactive Protein (0.5-1.0) mg/dL Total Protein 7.4 (6.0-8.3) g/dL Albumin 4.3 (3.3-5.0) g/dL Lipase (23-300) U/L SARS-CoV-2 (PCR) Negative SARS-CoV-2 (Negative) Hep Bs Antigen Negative (Negative) Hep Bs Antibody Negative (Negative) Hepatitis C Antibody Negative (Negative) Influenza Type A (PCR) Negative PCR FLU A (Negative) Influenza Type B (PCR) Negative PCR FLU B (Negative) RSV (PCR) Negative PCR RSV (Negative) Group A Strep DNA NOT DETECTED (Not Detectd) Lab Acknowledgement Test Added 12/14/24 Range/Units 00:38 WBC 5.90 (4.50-11.00) K/uL RBC 3.97 L (4.00-5.20) m/uL Hgb 11.6 L (12.0-16.0) gm/dL Hct 33.7 (33.0-51.0) % MCV 85 (80-100) fL MCH 29 (26-34) pg MCHC 34 (32-36) gm/dL RDW Coeff of Michell 13.0 (11.5-15.5) % Plt Count 212 (140-440) K/uL Neut % (Auto) 94.4 H (42.0-72.0) % Lymph % (Auto) 3.7 L (20-44) % [place] % (Auto) 1.7 (0.0-11.0) % Eos % (Auto) 0.0 (0.0-7.0) % Baso % (Auto) 0.2 (0.0-3.0) % Neut # (Auto) 5.60 (1.7-7.0) K/uL Lymph # (Auto) 0.20 L (0.90-2.90) K/uL [place] # (Auto) 0.10 (0.00-0.90) K/UL Eos # (Auto) 0.00 (0.00-0.50) K/uL Baso # (Auto) 0.01 (0.00-0.30) K/uL Abs Immat Gran (auto) 0.00 (0.00-0.30) K/uL Imm/Tot Granulo (auto) 0.0 % Sodium 134 L (135-149) mmol/L Potassium 3.6 (3.6-5.1) mmol/L Chloride 106 (96-114) mmol/L Carbon Dioxide 19 L (20-32) mmol/L Anion Gap 9 (7-15) mEq/L BUN 9 (5-24) mg/dL Creatinine 0.5 (0.5-1.5) mg/dL Estimated Creat Clear 157.93 Estimated GFR 122 ml/min Glucose 156 H (60-115) mg/dL Calcium 8.0 L (8.4-10.6) mg/dL Total Bilirubin 2.5 H (0.1-1.5) mg/dL Direct Bilirubin 1.0 H (0.0-0.5) mg/dL AST 546 H (12-35) U/L ALT 478 H (4-35) U/L Alkaline Phosphatase 138 (40-150) U/L C-Reactive Protein 2.2 H (0.5-1.0) mg/dL Total Protein 6.9 (6.0-8.3) g/dL Albumin 3.9 (3.3-5.0) g/dL Lipase 557 H (23-300) U/L SARS-CoV-2 (PCR) (Negative) Hep Bs Antigen (Negative) Hep Bs Antibody (Negative) Hepatitis C Antibody (Negative) Influenza Type A (PCR) (Negative) Influenza Type B (PCR) (Negative) RSV (PCR) (Negative) Group A Strep DNA (Not Detectd) Lab Acknowledgement <Carey Cabrera MD - Last Filed: 12/14/24 00:38> Lab Results 12/13/24 12/13/24 12/13/24 Range/Units 20:45 21:00 23:35 WBC (4.50-11.00) K/uL RBC (4.00-5.20) m/uL Hgb (12.0-16.0) gm/dL Hct (33.0-51.0) % MCV (80-100) fL MCH (26-34) pg MCHC (32-36) gm/dL RDW Coeff of Michell (11.5-15.5) % Plt Count (140-440) K/uL Neut % (Auto) (42.0-72.0) % Lymph % (Auto) (20-44) % [place] % (Auto) (0.0-11.0) % Eos % (Auto) (0.0-7.0) % Baso % (Auto) (0.0-3.0) % Neut # (Auto) (1.7-7.0) K/uL Lymph # (Auto) (0.90-2.90) K/uL [place] # (Auto) (0.00-0.90) K/UL Eos # (Auto) (0.00-0.50) K/uL Baso # (Auto) (0.00-0.30) K/uL Abs Immat Gran (auto) (0.00-0.30) K/uL Imm/Tot Granulo (auto) % Sodium 133 L (135-149) mmol/L Potassium 3.4 L (3.6-5.1) mmol/L Chloride 103 (96-114) mmol/L Carbon Dioxide 19 L (20-32) mmol/L Anion Gap 11 (7-15) mEq/L BUN 13 (5-24) mg/dL Creatinine 0.5 (0.5-1.5) mg/dL Estimated Creat Clear 157.93 Estimated GFR 122 ml/min Glucose 155 H (60-115) mg/dL Calcium 8.3 L (8.4-10.6) mg/dL Total Bilirubin 2.6 H (0.1-1.5) mg/dL Direct Bilirubin 1.1 H (0.0-0.5) mg/dL AST 471 H (12-35) U/L ALT 327 H (4-35) U/L Alkaline Phosphatase 141 (40-150) U/L C-Reactive Protein (0.5-1.0) mg/dL Total Protein 7.4 (6.0-8.3) g/dL Albumin 4.3 (3.3-5.0) g/dL Lipase (23-300) U/L SARS-CoV-2 (PCR) Negative SARS-CoV-2 (Negative) Hep Bs Antigen Negative (Negative) Hep Bs Antibody Negative (Negative) Hepatitis C Antibody Negative (Negative) Influenza Type A (PCR) Negative PCR FLU A (Negative) Influenza Type B (PCR) Negative PCR FLU B (Negative) RSV (PCR) Negative PCR RSV (Negative) Group A Strep DNA NOT DETECTED (Not Detectd) Lab Acknowledgement Test Added 12/14/24 Range/Units 00:38 WBC 5.90 (4.50-11.00) K/uL RBC 3.97 L (4.00-5.20) m/uL Hgb 11.6 L (12.0-16.0) gm/dL Hct 33.7 (33.0-51.0) % MCV 85 (80-100) fL MCH 29 (26-34) pg MCHC 34 (32-36) gm/dL RDW Coeff of Michell 13.0 (11.5-15.5) % Plt Count 212 (140-440) K/uL Neut % (Auto) 94.4 H (42.0-72.0) % Lymph % (Auto) 3.7 L (20-44) % [place] % (Auto) 1.7 (0.0-11.0) % Eos % (Auto) 0.0 (0.0-7.0) % Baso % (Auto) 0.2 (0.0-3.0) % Neut # (Auto) 5.60 (1.7-7.0) K/uL Lymph # (Auto) 0.20 L (0.90-2.90) K/uL [place] # (Auto) 0.10 (0.00-0.90) K/UL Eos # (Auto) 0.00 (0.00-0.50) K/uL Baso # (Auto) 0.01 (0.00-0.30) K/uL Abs Immat Gran (auto) 0.00 (0.00-0.30) K/uL Imm/Tot Granulo (auto) 0.0 % Sodium 134 L (135-149) mmol/L Potassium 3.6 (3.6-5.1) mmol/L Chloride 106 (96-114) mmol/L Carbon Dioxide 19 L (20-32) mmol/L Anion Gap 9 (7-15) mEq/L BUN 9 (5-24) mg/dL Creatinine 0.5 (0.5-1.5) mg/dL Estimated Creat Clear 157.93 Estimated GFR 122 ml/min Glucose 156 H (60-115) mg/dL Calcium 8.0 L (8.4-10.6) mg/dL Total Bilirubin 2.5 H (0.1-1.5) mg/dL Direct Bilirubin 1.0 H (0.0-0.5) mg/dL AST 546 H (12-35) U/L ALT 478 H (4-35) U/L Alkaline Phosphatase 138 (40-150) U/L C-Reactive Protein 2.2 H (0.5-1.0) mg/dL Total Protein 6.9 (6.0-8.3) g/dL Albumin 3.9 (3.3-5.0) g/dL Lipase 557 H (23-300) U/L SARS-CoV-2 (PCR) (Negative) Hep Bs Antigen (Negative) Hep Bs Antibody (Negative) Hepatitis C Antibody (Negative) Influenza Type A (PCR) (Negative) Influenza Type B (PCR) (Negative) RSV (PCR) (Negative) Group A Strep DNA (Not Detectd) Lab Acknowledgement <Abilio aGlicia DO - Last Filed: 12/14/24 01:51> Imaging Data CT scan abdomen pelvis: Attestation: I have reviewed the pertinent imaging results. <Abilio Galicia DO - Last Filed: 12/14/24 01:51> Radiologist's impression: Redemonstrated diffusely hypodense hepatic parenchyma, suggestive of hepatic steatosis. Otherwise, no acute findings in the abdomen or pelvis. Please note that all CT scans at this facility use dose modulation, iterative reconstruction, and/or weight-based dosing when appropriate to reduce radiation dose to as low as reasonably achievable. Dictated by Javid Christianson MD @ 12/13/2024 11:04:15 PM <Abilio Galicia DO - Last Filed: 12/14/24 01:51> Discharge Plan Discharge Clinical Impression: Elevated liver enzymes Allergic reaction Qualifiers: Encounter type: initial encounter Qualified Code(s): T78.40XA - Allergy, unspecified, initial encounter <Carey Cabrera MD - Last Filed: 12/14/24 00:38> Patient Disposition: Home, Self-Care <Carey Cabrera MD - Last Filed: 12/14/24 00:38> Condition: Improved <Carey Cabrera MD - Last Filed: 12/14/24 00:38> Instructions: General Allergic Reaction (ED) <Carey Cabrera MD - Last Filed: 12/14/24 00:38> Additional Instructions: I believe you had an allergic reaction but I do not know exactly why your liver enzymes are elevated. Since her symptoms have improved I do believe it is safe to send you home but it is very important that you have close follow-up with her primary care provider for repeat labs in the next 1-2 days. If you start developing any worsening symptoms please return to the emergency department immediately for re-evaluation. Expression leave this is pain in the right upper quadrant or epigastric region. Is also extremely important that you do not take any Tylenol until your liver enzymes are back to normal as this could cause further liver damage. <Carey Cabrera MD - Last Filed: 12/14/24 00:38> Prescriptions: No Action ondansetron 4 mg tablet,disintegrating 4 mg PO Q8H PRN (Reason: nausea and vomiting) Qty: 10 0RF hydrocodone-acetaminophen 5-325 mg tablet 1 tab PO Q6H PRN (Reason: pain) Qty: 7 0RF <Carey Cabrera MD - Last Filed: 12/14/24 00:38> Follow Up/Referrals: Charlene Parry MD [Primary Care Provider] - <Carey Cabrera MD - Last Filed: 12/14/24 00:38> Stand Alone Forms: MyHealth Info Instructions <Carey Cabrera MD - Last Filed: 12/14/24 00:38>
[2024-12-13] MEDS: dexAMETHasone 10 MG/ML inj IVP (20:59)
[2024-12-13] MEDS: diphenhydrAMINE 50 MG/ML inj IVP (20:59)
[2024-12-13] MEDS: 0.9 % SODIUM CHLORIDE 1000 ml 1,000 ML IV (21:00)
[2024-12-13 21:11] VITALS: O2SAT 98
[2024-12-13 21:19] VITALS: BP 107/66; PULSE 110; RESP 18; O2SAT 97
[2024-12-13 21:28] LABS: Albumin* 4.3 g/dL (3.3-5.0); Chloride* 103 mmol/L (96-114); Sodium* 133 mmol/L (135-149)
[2024-12-13 21:29] LABS: Strep A DNA Probe* NOT DETECTED (Not Detectd)
[2024-12-13 21:29] LABS: Potassium* 3.4 mmol/L (3.6-5.1)
[2024-12-13 21:31] LABS: Alanine Aminotransferase* 327 U/L (4-35); Alkaline Phosphatase* 141 U/L (40-150); Anion Gap 11 mEq/L (7-15); Aspartate Amino Transferase* 471 U/L (12-35); Bilirubin Total* 2.6 mg/dL (0.1-1.5); Blood Urea Nitrogen* 13 mg/dL (5-24); Carbon Dioxide* 19 mmol/L (20-32); Creatinine* 0.5 mg/dL (0.5-1.5); Est. Creatinine Clearance* 157.93; Estimated Glomerular Filt Rate 122 ml/min; Total Protein* 7.4 g/dL (6.0-8.3)
[2024-12-13 21:32] LABS: Calcium* 8.3 mg/dL (8.4-10.6); Glucose* 155 mg/dL (60-115)
[2024-12-13 21:42] LABS: PCR FLU A Negative PCR FLU A (Negative); PCR FLU B Negative PCR FLU B (Negative); PCR RSV Negative PCR RSV (Negative); SARS PCR* Negative SARS-CoV-2 (Negative)
[2024-12-13 22:18] VITALS: BP 102/60; PULSE 107; RESP 16; TEMP 37.5; O2SAT 97
[2024-12-13 23:27] LABS: Hepatitis B Surface Antigen* Negative (Negative)
[2024-12-13 23:45] LABS: Hepatitis C Virus Antibody* Negative (Negative)
[2024-12-13 23:58] LABS: Hepatitis B Surface Antibody* Negative (Negative)
[2024-12-14 00:17] LABS: Bilirubin Direct* 1.1 mg/dL (0.0-0.5)
[2024-12-14 00:28] VITALS: BP 101/58; PULSE 105; RESP 16; O2SAT 97
[2024-12-14 00:44] LABS: Basophils Absolute Auto 0.01 K/uL (0.00-0.30); Basophils Percent Auto 0.2 % (0.0-3.0); Hematocrit 33.7 % (33.0-51.0); Hemoglobin* 11.6 gm/dL (12.0-16.0); Lymphocytes Percent Auto 3.7 % (20-44); Mean Corpuscular HGB Conc 34 gm/dL (32-36); Mean Corpuscular Hemoglobin 29 pg (26-34); Mean Corpuscular Volume 85 fL (80-100); Monocytes Percent Auto 1.7 % (0.0-11.0); Neutrophils Percent Auto 94.4 % (42.0-72.0); Platelet Count* 212 K/uL (140-440); Red Blood Count 3.97 m/uL (4.00-5.20)
[2024-12-14 00:49] LABS: Slide Review Reflex No
[2024-12-14 00:57] LABS: Albumin* 3.9 g/dL (3.3-5.0); Chloride* 106 mmol/L (96-114)
[2024-12-14 00:58] LABS: Potassium* 3.6 mmol/L (3.6-5.1); Sodium* 134 mmol/L (135-149)
[2024-12-14 01:00] LABS: Blood Urea Nitrogen* 9 mg/dL (5-24); Creatinine* 0.5 mg/dL (0.5-1.5); Est. Creatinine Clearance* 157.93; Estimated Glomerular Filt Rate 122 ml/min
[2024-12-14 01:01] LABS: Alanine Aminotransferase* 478 U/L (4-35); Alkaline Phosphatase* 138 U/L (40-150); Anion Gap 9 mEq/L (7-15); Aspartate Amino Transferase* 546 U/L (12-35); Bilirubin Total* 2.5 mg/dL (0.1-1.5); Carbon Dioxide* 19 mmol/L (20-32); Glucose* 156 mg/dL (60-115); Lipase* 557 U/L (23-300); Total Protein* 6.9 g/dL (6.0-8.3)
[2024-12-14 01:04] LABS: C Reactive Protein* 2.2 mg/dL (0.5-1.0)
[2024-12-15 14:28] LABS: Hepatitis A Antibodies, Total Positive (Negative)
== END 2024-12-14 02:03 | disposition home or self-care (01) ==
PROVIDERS: Family Medicine; Emergency Provider Student in an Organized Health Care Education/Training Program; PCP Family Medicine
DX: L50.0 Allergic urticaria (principal); R74.01 Elevation of levels of liver transaminase levels
CPT/HCPCS: 36415; 74177; 80048; 80053; 80074; 80076; 82248; 83690; 85025; 86140; 86706; 86708; 86803; 87340; 87631; 87651; 94761; 99284; 99285; J1100; J1200; J7030; Q9967

== ENCOUNTER 2024-12-14 20:19 | Emergency (ER) | payer MEDICAID, SELFPAY ==
--- OUTSIDE RECORDS SUMMARY | 2024-12-14 20:22 | XMS_ITS | Clinical Summary ---
Author Organization [facility] Address [address] [place] [address] Care Team Providers Care Greige Mender Name Role Phone Charlene Parry MD Primary Care Provider [phone] Allergies Active Allergy Reactions Criticality Noted Date [...] No problems associated with this episode. America Mariano, ANOOPC.....07/15/2017 2:58 PM Encounter for supervision of other normal , first trimester 01/01/2017 Delayed gastric emptying 11/12/2016 Encounters Date Type Department Care Team Description 12/13/2024 Orders Only [facility] SERVICES Scanner 1 scan: (1-Ord) MARC JACKSON PELVIS W CON, 12/13/2024 12/13/2024 Nurse Triage [address] [address] Charlene Parry MD Diarrhea 12/08/2024 1:00 PM SPECIMEN ACCESSIONER Ancillary Procedure [facility] [address] [place] [address] 12/08/2024 11:10 AM SPECIMEN ACCESSIONER Office Visit [address] [address] Lilliana Ellis MD Vaginal Itching (6 days ) 12/08/2024 Travel 12/06/2024 Nurse Triage [facility] [address] [place] [address] Charlene Parry MD Vaginal Problem from Last 3 Months Immunizations Name Administration Dates Next Due COVID-19 VACCINE SPIKEVAX (M ODERNA 50MCG/0.5ML) 12YO+ PFS 08/03/2024 COVID-19 vaccine (Pfizer-Bio NTech 30mcg/0.3mL) PF, MDV 10/11/2021 INFLUENZA, IIV3 [...] on file Legal Sex Female 4:02 PM SPECIMEN ACCESSIONER Gender Identity Not on file Sexual Orientation [...] Comments Blood Pressure 105/69 12/08/2024 11:04 AM SPECIMEN ACCESSIONER Pulse 87 12/08/2024 11:04 AM SPECIMEN ACCESSIONER Temperature 37 C (98.6 F) 02/16/2019 2:08 PM CDT Respiratory Rate 18 11/27/2018 10:02 AM SPECIMEN ACCESSIONER Oxygen Saturation 99% 12/08/2024 11:04 AM SPECIMEN ACCESSIONER Inhaled Oxygen Concentration - - Weight 67.1 kg (148 lb) 12/08/2024 11:04 AM SPECIMEN ACCESSIONER Height 147.3 cm (4' 10) 06/18/2023 9:51 AM CDT Body Mass Index 30.93 06/18/2023 9:51 AM CDT Plan of Treatment Upcoming Encounters Date Type Department Care Team (Late st Contact Info) Description 12/15/2024 9:35 AM SPECIMEN ACCESSIONER Office Visit [facility] [address] [place] [address] Charlene Parry MD [address] [place] [address] 12/29/2024 11:15 AM CDT Office Visit [facility] [address] [place] [address] Charlene Parry MD [address] [place] [address] Health Maintenance Due Date Last Done Comments BMI (ht and wt on same day) for age 18+ 09/10/2022 09/10/2021, 08/07/2021, 07/25/2020, Additional history exists Depression screening for age 12+ 06/20/2024 06/20/2023, 06/19/2023, 06/18/2023, Additional history exists Pap test for age 21-65 08/07/2026 , 08/07/2021, 01/03/2017 Tetanus booster 05/06/2027 05/06/2017 Tdap [...] Procedure Name Priority Date/Time Associated Diagnosis Comments SCAN-CT INTERPRETATION 12:[address] ABDOMEN PELVIS W STAT 12/08/2024 1 2:52 PM SPECIMEN ACCESSIONER Abdominal pain, RLQ (right lower quadrant) GC CHLAMYDIA TRACH PROBE Routine 12/08/2024 12:28 PM SPECIMEN ACCESSIONER Vaginal discharge TRICHOMONAS, JACKSON, AND BACTERIAL VAGINOSIS BY ZEN Routine 12/08/2024 12:28 PM SPECIMEN ACCESSIONER Vaginal discharge ANTI HCV Routine 06/18/2023 10:25 AM CDT Need for hepatitis C screening test ANTI HIV 1/2 Routine 10/02/2021 2:01 PM SPECIMEN ACCESSIONER Lymphadenopathy HPV HIGH RISK Routine 08/07/2021 1:45 PM CDT Screening for cervical cancer from Last 3 Months or Most Recently Relevant to Health Maintenance Results * SCAN-CT INTERPRETATION (12/13/2024 12:00 AM SPECIMEN ACCESSIONER) Anatomical Region Laterality Modality Other us Scanner OTHER Final Result * CT ABDOMEN PELVIS W (12/08/2024 12:52 PM SPECIMEN ACCESSIONER) Anatomical Region Laterality Modality Abdomen, Pelvis, AORTA, LIVER, SPLEEN Computed Tomography 12/08/2024 1:07 PM SPECIMEN ACCESSIONER Impressions 12/08/2024 1:07 PM SPECIMEN ACCESSIONER 1. Normal appendix. No acute appendicitis. 2. [...] as low as reasonably achievable. Dictated by rKanthi Siddiqui MD @ 12/08/2024 1:07:17 PM (Electronically Signed) Narrative 12/08/2024 1:07 PM SPECIMEN ACCESSIONER For Patients: As a result of the Cures Act, medical imaging exams and procedure [...] For Patients: As a result of the Cures Act, medical imagingexams and procedure reports [...] BACTERIAL VAGINOSIS BY ZEN (12/08/2024 12:28 PM SPECIMEN ACCESSIONER) JACKSON SPECIES Negative Negative 12:57 PM SPECIMEN ACCESSIONER [facility] TRAL LAB[facility] JACKSON GLABRATA Negative Negative 12/09/2024 12:57 PM SPECIMEN ACCESSIONER [facility] TRICHOMONAS VVA Negative Negative 12:57 PM SPECIMEN ACCESSIONER [facility] TRAL LAB[facility] BACTERIAL VAGINOSIS Negative Negative 12/09/2024 12:57 PM SPECIMEN ACCESSIONER [facility] TRAL LAB[facility] Other VAGINAL SWAB / Unknown Non-Blood / Unknown 12/08/2024 12:28 PM SPECIMEN ACCESSIONER 12/08/2024 12:28 PM SPECIMEN ACCESSIONER Lilliana Ellis MD MICROBIOLOGY Fi nal Result Performing Organization Address City/[facility]/ZIP Co de Phone Number [facility] [address] [place] [address], * GC & CHLAMYDIA DNA PCR [[id number]] (12/08/2024 12:28 PM SPECIMEN ACCESSIONER) CHLAMYDIA PROBE Negative 1:34 PM SPECIMEN ACCESSIONER [facility] N GONORRHOEAE PROBE Negative 12/09/2024 1:34 PM SPECIMEN ACCESSIONER [facility] TRA LABORATORY Other VAGINAL SWAB / Unknown Non-Blood / Unknown 12/08/2024 12:28 PM SPECIMEN ACCESSIONER 12/08/2024 12:28 PM SPECIMEN ACCESSIONER Lilliana Ellis MD MICROBIOLOGY Fi nal Result Performing Organization Address City/[facility]/ZIP Co de Phone Number [facility] [address] [place] [address], [place] * ANTI HCV (06/18/2023 10:25 AM CDT) HEPATITIS C ANTIBODY Non-Reacti ve Non-React brandon 06/18/2023 7:17 PM CDT [facility] Comment:Please note, per www .CDC.gov: If [...] Parry MD SEND OUTS Final Resul t [facility] SENDOUT INTERNAL ZIP [address] [place] [id number] * ANTI HIV 1/2 (10/02/2021 2:01 PM SPECIMEN ACCESSIONER) HIV-1/HIV-2 ANTIBODY Non-Reacti ve Non-Reacti ve 10/02/2021 10:27 PM SPECIMEN ACCESSIONER [facility] TRAL LAB[facility]ATORY Comment:HIV-1 p24 and HIV-1/ HIV-2 Ab not detected. Blood BLOOD SPECIMEN / Unknown Butterfly / Unknown 10/02/2021 2:01 PM SPECIMEN ACCESSIONER 10/02/2021 2:01 PM SPECIMEN ACCESSIONER us Pam Boyd MD SEND OUTS Final Res ult [facility] [address] [place] [address], * HPV HIGH RISK (08/07/2021 1:45 PM CDT) TYPE 16 Negative Negative 08/09/2021 11:32 AM CDT [facility] [employer] LABORATORY-[facility] TRAL LAB[facility]ORY TYPE 18 Negative Negative 08/09/2021 11:32 AM CDT [facility] TR[facility] LAB[facility] OTHER HIGH RISK TYPES Negative Negative 08/09/2021 11:32 AM CDT [facility] TR[facility] Other (Cervical) Non-Blood / Unknown 08/07/2021 1:45 PM CDT 08/08/2021 9:10 AM CDT Narrative [facility] - 08/09/2021 11:32 AM CDT HPV types 16, 18, 31, 33, 35, 39, 45, 51, 52, 56, 58, 59, 66 and 68 DNA were undetectable or below the pre-set threshold. Methodology: Jennifer Romulo 4800 HPV Test us Charlene Parry MD MICROBIOLOGY Final Resul t [facility]AL LABORATORY [address] [place] [address], [place] from Last 3 Months or Most Recently Relevant to Health Maintenance Insurance [facility] [place] Care Teams Greige Mender Relationship Specialty Start Date End Date Charlene Parry MD [address] [place] [address] PCP - General Family Practice 09/30/16
[2024-12-14 20:23] VITALS: BP 103/65; PULSE 95; RESP 16; TEMP 36.8; O2SAT 98; BMI 30.2
--- NOTE | 2024-12-14 20:24 | ED.GENADULT ---
HPI - General Adult General Time Seen by Provider: 20:25 Date Seen: 12/14/24 Chief complaint: Unspecified Complaint, Adult Stated complaint: Rash across body Time Seen by Provider: 12/14/24 20:24 Source: patient, RN notes reviewed and old records reviewed Mode of arrival: ambulatory Limitations: no limitations History of Present Illness HPI narrative: 39-year-old female who comes in today with itching and rash. Patient was seen yesterday for same, was given Benadryl and Decadron and discharged, rash returns this evening. It is all over body, itchy. She denies tongue or lip swelling, cough, breathing difficulty, vomiting or diarrhea. She was seen yesterday with abdominal pain, vomiting diarrhea, those symptoms have largely resolved although she still has a little bit of upper abdominal pain. Has not taken anything at home for her itching. Related Data Previous Rx's ?Medication ?Instructions ?Recorded hydrocodone 5 mg-acetaminophen 325 1 tab PO Q6H PRN pain #7 tabs 12/13/24 mg tablet ondansetron 4 mg disintegrating 4 mg PO Q8H PRN nausea and 12/13/24 tablet vomiting #10 tabs cetirizine 10 mg capsule (Zyrtec) 10 mg PO BID PRN allergy symptoms 12/14/24 7 days #14 caps Allergies Allergy/AdvReac Type Severity Reaction Status Date / Time No Known Drug Allergies Allergy Verified 12/13/24 22:56 PFSH [facility] Social History Smoking Status: Never smoker Do you use any of these nicotine containing products: None Second hand tobacco smoke exposure: No How often do you have a drink containing alcohol: monthly or less How many standard drinks containing alcohol do you have on a typical day: 3 or 4 How often do you have six or more drinks on one occasion: Less than monthly AUDIT-C Alcohol total score: 3 Non-prescribed substance use: denies use service: No Exam Narrative: Exam Narrative: General: Well-developed and well-nourished, no acute distress Head: Atraumatic and normocephalic Eyes: Pupils are equal reactive, extraocular motions intact, conjunctiva clear ENT: External nose and ears are normal, posterior pharynx without erythema or exudate Neck: No midline cervical tenderness, full spontaneous range of motion the neck, trachea midline, no adenopathy Heart: Regular rate and rhythm no murmurs or thrills Lungs: Clear to auscultation bilaterally without wheezes or crackles Abdomen: Soft, mild epigastric tenderness,, nondistended with active bowel sounds Musculoskeletal: No tenderness, deformity, or edema Neurologic: Awake, alert, and oriented x3, no gross focal neurologic deficits, cranial nerves intact as tested Psych: Mood and affect are appropriate Skin: Diffuse urticarial rash with excoriation Const: Vital Signs, click to edit/add: Vital Signs - 24 hr 12/14/24 20:23 12/14/24 21:40 12/14/24 21:41 Temperature 98.3 F Pulse Rate 99 107 H Pulse Rate [Left P ulse Oximeter] 95 Respiratory Rate 16 Blood Pressure 109/66 Blood Pressure [Ri ght Upper Arm] 103/65 Pulse Oximetry 98 99 99 Oxygen Delivery Me thod Room Air 12/14/24 21:45 12/14/24 21:46 Temperature Pulse Rate 91 94 Pulse Rate [Left P ulse Oximeter] Respiratory Rate Blood Pressure 114/65 Blood Pressure [Ri ght Upper Arm] Pulse Oximetry 97 97 Oxygen Delivery Me thod Course Course ED Course: Reviewed emergency department note from last night when patient was seen with an allergic reaction. She was noted to have hives, she was given Benadryl and dexamethasone with improvement of symptoms and discharged. Patient also seen yesterday with abdominal pain, noted to have elevated liver enzymes, negative hepatitis testing. Patient presents today with itchy rash that returned tonight. No respiratory oral involvement, no nausea vomiting, does have a little bit of upper abdominal pain but improved from yesterday. On exam here patient's vital is stable, excoriated urticarial rash diffusely. Lungs are clear, no lip or tongue swelling. Patient will be given Benadryl and prednisone in the emergency department, anticipate discharge on same. Will recheck LFTs today, also patient says that she had some dark stools and so hemoglobin level be checked although does not appear pale. Reevaluation(s) Time of Reevaluation #1: 21:31 Reevaluation #1: Labs independently interpreted by me with normal CBC, hemoglobin 11.4 which is stable from yesterday, 18 ALT are improved and total bilirubin has normalized. Patient feels like her rash is not getting better is requesting more medication. Epinephrine IM is ordered and anticipate discharge. Time of Reevaluation #2: 21:42 Reevaluation #2: Updated patient with plan, she was just given epinephrine is complaining of feeling jittery, we discussed this is a normal reaction. Watch the patient for little bit longer and then discharge. As she is not having anaphylaxis reaction, I do not think she needs to be observed for hours after epinephrine given. Time of Reevaluation #3: 22:07 Reevaluation #3: Patient's rash improved and stable for discharge. Vital Signs Vital signs: Initial Vital Signs Temperature 98.3 F 12/14/24 20:23 Temperature Source Temporal Artery Scan 12/14/24 20:23 Pulse Rate 95 12/14/24 20:23 Pulse Rhythm Regular 12/14/24 20:23 Respiratory Rate 16 12/14/24 20:23 Blood Pressure 103/65 12/14/24 20:23 Blood Pressure Mean 77 12/14/24 20:23 Blood Pressure Position Sitting 12/14/24 20:23 Pulse Oximetry 98 12/14/24 20:23 Oxygen Delivery Method Room Air 12/14/24 20:23 Vital Signs Temperature 98.3 F 12/14/24 20:23 Pulse Rate 95 12/14/24 20:23 Respiratory Rate 16 12/14/24 20:23 Blood Pressure 103/65 12/14/24 20:23 Pulse Oximetry 98 12/14/24 20:23 Oxygen Delivery Method Room Air 12/14/24 20:23 Temperature 98.3 F 12/14/24 20:23 Pulse Rate 94 12/14/24 21:46 Respiratory Rate 16 12/14/24 20:23 Blood Pressure 114/65 12/14/24 21:46 Pulse Oximetry 97 12/14/24 21:46 Oxygen Delivery Method Room Air 12/14/24 20:23 Medications Administered Medications: Discontinued Medications Generic Name Dose Route Start Last Admin Trade Name Freq PRN Reason Stop Dose Admin Diphenhydramine HCl 50 mg 12/14/24 20:46 12/14/24 20:55 Diphenhydramine 25 Mg Capsule PO 12/14/24 20:47 50 mg ONCE ONE Administration Epinephrine HCl 0.3 mg 12/14/24 21:30 12/14/24 21:36 Epinephrine 0.3 Mg Pen IM 12/14/24 21:31 0.3 mg ONCE ONE Administration Prednisone 40 mg 12/14/24 20:46 12/14/24 20:55 Prednisone 20 Mg Tablet PO 12/14/24 20:47 40 mg ONCE ONE Administration Medical Decision Making Lab Data Labs: Lab Results 12/14/24 Range/Units 20:35 WBC 5.90 (4.50-11.00) K/uL RBC 3.86 L (4.00-5.20) m/uL Hgb 11.4 L (12.0-16.0) gm/dL Hct 33.0 (33.0-51.0) % MCV 86 (80-100) fL MCH 30 (26-34) pg MCHC 35 (32-36) gm/dL RDW Coeff of Michell 13.3 (11.5-15.5) % Plt Count 210 (140-440) K/uL Neut % (Auto) 69.2 (42.0-72.0) % Lymph % (Auto) 19.8 L (20-44) % Sabine % (Auto) 9.7 (0.0-11.0) % Eos % (Auto) 0.3 (0.0-7.0) % Baso % (Auto) 0.2 (0.0-3.0) % Neut # (Auto) 4.08 (1.7-7.0) K/uL Lymph # (Auto) 1.20 (0.90-2.90) K/uL Sabine # (Auto) 0.60 (0.00-0.90) K/UL Eos # (Auto) 0.02 (0.00-0.50) K/uL Baso # (Auto) 0.01 (0.00-0.30) K/uL Abs Immat Gran (auto) 0.05 (0.00-0.30) K/uL Imm/Tot Granulo (auto) 0.8 % Total Bilirubin 0.6 (0.1-1.5) mg/dL Direct Bilirubin 0.2 (0.0-0.5) mg/dL AST 214 H (12-35) U/L ALT 446 H (4-35) U/L Alkaline Phosphatase 144 (40-150) U/L Total Protein 6.9 (6.0-8.3) g/dL Albumin 4.0 (3.3-5.0) g/dL Lipase 117 (23-300) U/L Discharge Plan Discharge Clinical Impression: Acute urticaria Patient Disposition: Home, Self-Care Condition: Stable Instructions: Urticaria (ED) Additional Instructions: Start prednisone tomorrow as prescribed Take Benadryl 50 mg every 6 hours for 24 hours, then as needed Take Zyrtec twice a day as prescribed Follow-up with your primary care doctor next week Activity Level: Activity as Tolerated Discharge Diet: Regular Prescriptions: New Zyrtec 10 mg capsule 10 mg PO BID PRN (Reason: allergy symptoms) 7 Days Qty: 14 0RF No Action ondansetron 4 mg tablet,disintegrating 4 mg PO Q8H PRN (Reason: nausea and vomiting) Qty: 10 0RF hydrocodone-acetaminophen 5-325 mg tablet 1 tab PO Q6H PRN (Reason: pain) Qty: 7 0RF Follow Up/Referrals: Charlene Parry MD [Primary Care Provider] - Stand Alone Forms: My[employer] Info Instructions
[2024-12-14] MEDS: diphenhydrAMINE 25 MG CAPSULE 50 MG PO (20:55)
[2024-12-14] MEDS: predniSONE 20 MG TABLET 40 MG PO (20:55)
[2024-12-14 20:58] LABS: Basophils Absolute Auto 0.01 K/uL (0.00-0.30); Basophils Percent Auto 0.2 % (0.0-3.0); Eosinophils Absolute Auto 0.02 K/uL (0.00-0.50); Eosinophils Percent Auto 0.3 % (0.0-7.0); Hemoglobin* 11.4 gm/dL (12.0-16.0); Immature Granulocytes Abs Auto 0.05 K/uL (0.00-0.30); Immature Granulocytes Pct Auto 0.8 %; Lymphocytes Percent Auto 19.8 % (20-44); Mean Corpuscular HGB Conc 35 gm/dL (32-36); Mean Corpuscular Hemoglobin 30 pg (26-34); Mean Corpuscular Volume 86 fL (80-100); Monocytes Percent Auto 9.7 % (0.0-11.0); Neutrophils Absolute Auto 4.08 K/uL (1.7-7.0); Neutrophils Percent Auto 69.2 % (42.0-72.0); Platelet Count* 210 K/uL (140-440); RDW Coefficient of Variation % 13.3 % (11.5-15.5); Red Blood Count 3.86 m/uL (4.00-5.20)
--- OUTSIDE RECORDS SUMMARY | 2024-12-14 21:06 | XMS_ITS | Clinical Summary ---
Author Organization [employer] [facility] Address [address] [place] [address] Care Team Providers Care Dough Cutter Name Role Phone Charlene Parry MD Primary Care Provider [phone] Allergies Active Allergy Reactions Criticality Noted Date [...] Department Care Team Description 12/13/2024 Orders Only [facility] HIM SERVICES Scanner 1 scan: (1-Ord) MARC JACKSON PELVIS W CON, 12/13/2024 12/13/2024 Nurse Triage [address] [address] Charlene Parry MD Diarrhea 12/08/2024 1:00 PM NUISANCE WILDLIFE SPECIALIST Ancillary Procedure [facility] [address] [place] [address] 12/08/2024 11:10 AM NUISANCE WILDLIFE SPECIALIST Office Visit [address] [address] Lilliana Ellis MD Vaginal Itching (6 days ) 12/08/2024 Travel 12/06/2024 Nurse Triage [facility] [address] [place] [address] Charlene Parry MD Vaginal Problem from Last [...] on file Legal Sex Female 4:02 PM NUISANCE WILDLIFE SPECIALIST Gender Identity Not on file Sexual Orientation [...] Comments Blood Pressure 105/69 12/08/2024 11:04 AM NUISANCE WILDLIFE SPECIALIST Pulse 87 12/08/2024 11:04 AM NUISANCE WILDLIFE SPECIALIST Temperature 37 C (98.6 F) 02/16/2019 2:08 PM CDT Respiratory Rate 18 11/27/2018 10:02 AM NUISANCE WILDLIFE SPECIALIST Oxygen Saturation 99% 12/08/2024 11:04 AM NUISANCE WILDLIFE SPECIALIST Inhaled Oxygen Concentration - - Weight 67.1 kg (148 lb) 12/08/2024 11:04 AM NUISANCE WILDLIFE SPECIALIST Height 147.3 cm (4' 10) 06/18/2023 9:51 AM CDT Body Mass Index 30.93 06/18/2023 9:51 AM CDT Plan of Treatment Upcoming Encounters Date Type Department Care Team (Late st Contact Info) Description 12/15/2024 9:35 AM NUISANCE WILDLIFE SPECIALIST Office Visit [facility] [address] [place] [address] Charlene Parry MD [address] [place] [address] 12/29/2024 11:15 AM CDT Office Visit [facility] [address] [place] [address] Charlene Parry MD [address] [place] [address] Health Maintenance Due Date Last Done Comments [...] Associated Diagnosis Comments SCAN-CT INTERPRETATION 12:[address]ILDLIFE [address] ABDOMEN PELVIS W STAT 12/08/2024 1 2:52 PM NUISANCE WILDLIFE SPECIALIST Abdominal pain, RLQ (right lower quadrant) GC CHLAMYDIA TRACH PROBE Routine 12/08/2024 12:28 PM NUISANCE WILDLIFE SPECIALIST Vaginal discharge TRICHOMONAS, JACKSON, AND BACTERIAL VAGINOSIS BY ZEN Routine 12/08/2024 12:28 PM NUISANCE WILDLIFE SPECIALIST Vaginal discharge ANTI HCV Routine 06/18/2023 10:25 AM CDT Need for hepatitis C screening test ANTI HIV 1/2 Routine 10/02/2021 2:01 PM NUISANCE WILDLIFE SPECIALIST Lymphadenopathy HPV HIGH RISK Routine 08/07/2021 1:45 PM CDT Screening for cervical cancer from Last 3 Months or Most Recently Relevant to Health Maintenance Results * SCAN-CT INTERPRETATION (12/13/2024 12:00 AM NUISANCE WILDLIFE SPECIALIST) Anatomical Region Laterality Modality Other us Scanner OTHER Final Result * CT ABDOMEN PELVIS W (12/08/2024 12:52 PM NUISANCE WILDLIFE SPECIALIST) Anatomical Region Laterality Modality Abdomen, Pelvis, AORTA, LIVER, SPLEEN Computed Tomography 12/08/2024 1:07 PM NUISANCE WILDLIFE SPECIALIST Impressions 12/08/2024 1:07 PM NUISANCE WILDLIFE SPECIALIST 1. Normal appendix. No acute appendicitis. 2. [...] PM (Electronically Signed) Narrative 12/08/2024 1:07 PM NUISANCE WILDLIFE SPECIALIST For Patients: As a result of the [...] BACTERIAL VAGINOSIS BY ZEN (12/08/2024 12:28 PM NUISANCE WILDLIFE SPECIALIST) JACKSON SPECIES Negative Negative 12:57 PM NUISANCE WILDLIFE SPECIALIST [facility] TRAL LABORATORY JACKSON GLABRATA Negative Negative 12/09/2024 12:57 PM NUISANCE WILDLIFE SPECIALIST [facility] TRICHOMONAS VVA Negative Negative 12:57 PM NUISANCE WILDLIFE SPECIALIST [facility] TRAL LAB[facility] BACTERIAL VAGINOSIS Negative Negative 12/09/2024 12:57 PM NUISANCE WILDLIFE SPECIALIST [facility] TRAL LABORATORY Other VAGINAL SWAB / Unknown Non-Blood / Unknown 12/08/2024 12:28 PM NUISANCE WILDLIFE SPECIALIST 12/08/2024 12:28 PM NUISANCE WILDLIFE SPECIALIST Lilliana Ellis MD MICROBIOLOGY Fi nal Result Performing Organization Address City/[facility]/ZIP Co de Phone Number [facility] [address] [place] [address], * GC & CHLAMYDIA DNA PCR [[id number]] (12/08/2024 12:28 PM NUISANCE WILDLIFE SPECIALIST) CHLAMYDIA PROBE Negative 1:34 PM NUISANCE WILDLIFE SPECIALIST [facility] LABOR[facility] N GONORRHOEAE PROBE Negative 12/09/2024 1:34 PM NUISANCE WILDLIFE SPECIALIST [facility] TRA LABORATORY Other VAGINAL SWAB / Unknown Non-Blood / Unknown 12/08/2024 12:28 PM NUISANCE WILDLIFE SPECIALIST 12/08/2024 12:28 PM NUISANCE WILDLIFE SPECIALIST Lilliana Ellis MD MICROBIOLOGY Fi nal Result Performing Organization Address City/[facility]/ZIP Co de Phone Number [facility] [address] [place] [address], [place] * ANTI HCV (06/18/2023 10:25 AM CDT) HEPATITIS C ANTIBODY Non-Reacti ve Non-React brandon 06/18/2023 7:17 PM CDT [facility] Comment:Please note, per www .CDC.gov: If [...] Parry MD SEND OUTS Final Resul t [facility] SENDOUT INTERNAL ZIP [address] [place] [address] * ANTI HIV 1/2 (10/02/2021 2:01 PM NUISANCE WILDLIFE SPECIALIST) HIV-1/HIV-2 ANTIBODY Non-Reacti ve Non-Reacti ve 10/02/2021 10:27 PM NUISANCE WILDLIFE SPECIALIST [facility] LABORAT[facility] TRAL LABORATORY Comment:HIV-1 p24 and HIV-1/ HIV-2 Ab not detected. Blood BLOOD SPECIMEN / Unknown Butterfly / Unknown 10/02/2021 2:01 PM NUISANCE WILDLIFE SPECIALIST 10/02/2021 2:01 PM NUISANCE WILDLIFE SPECIALIST us Pam Boyd MD SEND OUTS Final Res ult [facility] [employer] [address] [place] [address], * HPV HIGH RISK (08/07/2021 1:45 PM CDT) TYPE 16 Negative Negative 08/09/2021 11:32 AM CDT [facility] [employer] LABORATORY-[facility] TRAL LABORATORY TYPE 18 Negative Negative 08/09/2021 11:32 AM CDT [facility] TRAL LABORATORY OTHER HIGH RISK TYPES Negative Negative 08/09/2021 11:32 AM CDT [facility] TRAL LABORATORY Other (Cervical) Non-Blood / Unknown 08/07/2021 1:45 PM CDT 08/08/2021 9:10 AM CDT Narrative [facility] [employer] - 08/09/2021 11:32 AM CDT HPV types 16, 18, 31, 33, 35, 39, 45, 51, 52, 56, 58, 59, 66 and 68 DNA were undetectable or below the pre-set threshold. Methodology: Jennifer Romulo 4800 HPV Test us Charlene Parry MD MICROBIOLOGY Final Resul t [facility]AL LABORATORY [address] [place] [address], [place] from Last 3 Months or Most Recently Relevant to Health Maintenance Insurance [facility] [place] Care Teams Dough Cutter Relationship Specialty Start Date End Date Charlene Parry MD [address] [place] [address] PCP - General Family Practice 09/30/16
[2024-12-14 21:07] LABS: Slide Review Reflex No
[2024-12-14 21:23] LABS: Alkaline Phosphatase* 144 U/L (40-150); Aspartate Amino Transferase* 214 U/L (12-35); Bilirubin Direct* 0.2 mg/dL (0.0-0.5); Bilirubin Total* 0.6 mg/dL (0.1-1.5); Total Protein* 6.9 g/dL (6.0-8.3)
[2024-12-14 21:24] LABS: Alanine Aminotransferase* 446 U/L (4-35); Lipase* 117 U/L (23-300)
[2024-12-14] MEDS: EPINEPHrine 0.3 MG PEN IM (21:36)
[2024-12-14 21:40] VITALS: BP 109/66; PULSE 99; O2SAT 99
[2024-12-14 21:41] VITALS: PULSE 107; O2SAT 99
[2024-12-14 21:45] VITALS: PULSE 91; O2SAT 97
[2024-12-14 21:46] VITALS: BP 114/65; PULSE 94; O2SAT 97
== END 2024-12-14 22:25 | disposition home or self-care (01) ==
LOC: ED 21:04
PROVIDERS: Emergency Provider Family Medicine; PCP Family Medicine
DX: L50.9 Urticaria, unspecified (principal)
CPT/HCPCS: 36415; 80076; 83690; 85025; 96372; 99284; A9270; J0171; J7512

== ENCOUNTER 2025-06-03 15:28 | Emergency (ER) | payer MEDICAID, SELFPAY ==
--- OUTSIDE RECORDS SUMMARY | 2025-06-03 15:31 | XMS_ITS | Clinical Summary ---
Author Organization [facility] Address [address] [place] [address] Care Team Providers Care Dealer Accounts Investigator Name Role Phone Charlene Parry MD Primary Care Provider [phone] Allergies Active Allergy Reactions Criticality Noted Date Comments Naproxen Edema High 03/02/2022 Medications cholecalciferol (Vitamin D-3) 2,000 unit capsuleIndicatio ns:Vitamin D deficiency Take 1 Capsule (2,000 units) by mouth once daily. 90 Capsule 3 5 Active famotidine 20 mg tabletIndication s:Gastroesophage al reflux disease, unspecified whether esophagitis present Take 1 Tablet (20 mg) by mouth two times daily. 120 Tablet 5 Active calcium carbonate (Tums) 200 mg calcium (500 mg) chewable tabletIndication s:Gastroesophage al reflux disease, unspecified whether esophagitis present Chew 1 Tablet (500 mg) by mouth 3 times daily if needed for Heartburn or GI Upset. 200 Tablet 5 Active citalopram 20 mg tabletIndication s:Adjustment insomnia,Stress and adjustment reaction Take 1 Tablet (20 mg) by mouth once daily in the morning. 90 Tablet 3 5 Active Simethicone 125 mg chewable tabletIndication s:Gastroesophage al reflux disease, unspecified whether esophagitis present Chew 1 Tablet (125 mg) by mouth 4 times daily if needed for Flatulence or GI Upset. Max dose: 500 mg per 24 hrs 60 Tablet 5 Active meclizine 25 mg tabletIndication s:Benign paroxysmal positional vertigo, unspecified laterality Take 1 Tablet (25 mg) by mouth 3 times daily if needed for Vertigo. 30 Tablet 5 Active Active Problems Problem Noted Date Diagnosed Date [...] Encounters Date Type Department Care Team Description 04/08/[address] [facility] [address] [place] [address] Charlene Parry MD Results 04/07/2025 8:45 AM CDT Office Visit 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 Gender Identity Not on file Sexual Orientation [...] Sign Reading Time Taken Comments Blood Pressure 94/61 04/07/2025 9:03 AM CDT Pulse 73 04/07/2025 9:03 AM CDT Temperature 36.3 C (97.3 F) 12/20/2024 10:23 AM CDT Respiratory Rate 18 11/27/2018 10:02 AM LICENSED MARINE ENGINEER Oxygen Saturation 98% 04/07/2025 9:03 AM CDT Inhaled Oxygen Concentration - - Weight 67 kg (147 lb 12.8 oz) 04/07/2025 9:03 AM CDT Height 148 cm (4' 10.27) 12/20/2024 10:23 AM CD T Body Mass Index 30.61 12/20/2024 10:23 AM CDT Plan of Treatment Upcoming Encounters Date Type Department Care Team (Late st Contact Info) Description 06/14/2025 1:[address] [facility] [address] [place] [address] Mauro Slaughter, PhD, [facility] [place] [address] Health Maintenance Due Date Last Done Comments Hepatitis B series for 19+ (1 of 3 - 19+ 3-dose series) 2004 Depression screening for age 12+ 06/20/2024 06/20/2023, 06/19/2023, 06/18/2023, Additional history exists Influenza Vaccine (#1) 2025 4, 07/15/2023, 07/31/2021, Additional history exists BMI (ht and wt on same day) for age 18+ 12/20/2025 12/20/2024, 09/10/2021, 08/07/2021, Additional history exists Pap test for age 21-65 08/07/2026 1, 08/07/2021, 01/03/2017 Tetanus booster 05/06/2027 05/06/2017 HIV for age 15-65 Completed 10/02/2021, 01/01/2017 Hepatitis C screening for age 18-79 Completed 06/18/2023 COVID-19 vaccine series Completed 08/03/20, 10/11/2021, 03/08/2021, Additional history exists Pneumococcal series for age 6-49 Aged Out No longer eligible based on patient's age to complete this topic Procedures Procedure Name Priority Date/Time Associated Diagnosis Comments COMP METABOLIC PANEL Routine 04/07/2025 9:46 AM CDT Hepatic steatosis LIPASE Routine 04/07/2025 9:46 AM CDT Elevated lipase HEMOGLOBIN A1C Routine 04/07/2025 9:46 AM CDT Diabetes mellitus screening VITAMIN D 25 (DEFICIENCY) Routine 04/07/2025 9:46 AM CDT Vitamin D deficiency FERRITIN Routine 04/07/2025 9:46 AM CDT Adjustment insomnia Stress and adjustment reaction LIPID PANEL W REFLEX MEASURED LDL Routine 04/07/2025 9:46 AM CDT High triglycerides CBC WITH AUTO DIFFERENTIAL Routine 04/07/2025 9:46 AM CDT Adjustment insomnia Stress and adjustment reaction ANTI HCV Routine 06/18/2023 10:25 AM CDT Need for hepatitis C screening test ANTI HIV 1/2 Routine 10/02/2021 2:01 PM LICENSED MARINE ENGINEER Lymphadenopathy HPV HIGH RISK Routine 08/07/2021 1:45 PM CDT Screening for cervical cancer from Last 3 Months or Most Recently Relevant to Health Maintenance Results * HEMOGLOBIN A1C (04/07/2025 9:46 AM CDT) HEMOGLOBIN A1C 5.5 <5.7 % [email or web address] Comment: For the purpose of screening for the presence of diabetes: <5.7% Consistent with the absence of diabetes 5.7-6.4% Consistent with increased risk for diabetes (prediabetes) > or =6.5% Consistent with diabetes This assay result is consistent with a decreased risk of diabetes. Currently, no consensus exists regarding use of hemoglobin A1c for diagnosis of diabetes in children. According to [place] Diabetes Association (ADA) guidelines, hemoglobin A1c <7.0% represents optimal control in non- diabetic patients. Different metrics may apply to specific patient populations. Standards of Medical Care in Diabetes(ADA). Blood BLOOD SPECIMEN / Unknown 04/07/2025 9:46 AM CDT 04/07/2025 9:48 AM CDT Narrative [facility] - 04/08/2025 6:01 AM CDT FASTING:NO FASTING: NO us Charlene Parry MD CHEMISTRY Final Resul t [facility] [address] [place] [address], [email or web address] [address] [place] [address] * (ABNORMAL) LIPID PANEL W REFLEX MEASURED LDL (04/07/2025 9:46 AM CDT) [facility] CHOLESTEROL, TOTAL 198 <200 mg/dL [email or web address] HDL CHOLESTEROL 36(L) > OR = 50 mg/dL [email or web address] TRIGLYCERIDES 220(H) <150 mg/dL [email or web address] Comment: If a non-fasting specimen was collected, consider repeat triglyceride testing on a fasting specimen if clinically indicated. Yamile et al. J. of Clin. Lipidol. 2015;9:129-169. LDL-CHOLESTEROL 125(H) mg/dL (calc) [email or web address] Comment: Reference range: <100 Desirable range <100 mg/dL for primary prevention; <70 mg/dL for patients with CHD or diabetic patients with > or = 2 CHD risk factors. LDL-C is now calculated using the Harjit-Nathan calculation, which is a validated novel method providing better accuracy than the Friedewald equation in the estimation of LDL-C. Harjit MERRITT et al. ANDREZ. 2013;310(19): 5144-9493 (http://education.Casinity/faq/MGP929) CHOL/HDLC RATIO 5.5(H) <5.0 (calc) [email or web address] NON HDL CHOLESTEROL 162(H) <130 mg/dL (calc) [email or web address] Comment: For patients with diabetes plus 1 major ASCVD risk factor, treating to a non-HDL-C goal of <100 mg/dL (LDL-C of <70 mg/dL) is considered a therapeutic option. Blood BLOOD SPECIMEN / Unknown 04/07/2025 9:46 AM CDT 04/07/2025 9:48 AM CDT Narrative [facility] - 04/08/2025 5:18 AM CDT FASTING:NO FASTING: NO Charlene Parry MD CHEMISTRY Final Resul t Performing Organization Address [facility] [[email or web address]] de Phone Number [facility] [address] [address], [place] [phone] [email or web address] [address] * (ABNORMAL) VITAMIN D 25 (DEFICIENCY) (04/07/2025 9:46 AM CDT) VITAMIN D,25-OH,TOTAL,IA 20(L) 30 - 100 ng/mL [email or web address] Zhang Comment: Vitamin D Status 25-OH Vitamin D: Deficiency: <20 ng/mL Insufficiency: 20 - 29 ng/mL Optimal: > or = 30 ng/mL For 25-OH Vitamin D testing on patients on D2-supplementation and patients for whom quantitation of D2 and D3 fractions is required, the QuestAssureD(TM) 25-OH VIT D, (D2,D3), LC/MS/MS is recommended: order code [id number] (patients >2yrs). See Note 1 Note 1 For additional information, please refer to http://education.Casinity/faq/JXW074 (This link is being provided for informational/ educational purposes only.) Blood BLOOD SPECIMEN / Unknown 04/07/2025 9:46 AM CDT 04/07/2025 9:48 AM CDT Narrative [facility] - 04/08/2025 5:43 AM CDT FASTING:NO FASTING: NO Charlene Parry MD SEND OUTS Final Resul t Performing Organization Address [facility]/ZIP Co de Phone Number [facility] [place] [address] [place] [address], [place] [phone] [facility] [address] [place] [address] * CBC AND DIFFERENTIAL (04/07/2025 9:46 AM CDT) Pathologist [facility] WHITE BLOOD CELL COUNT 6.7 3.8 - 10.8 Thousand/u L [facility] RED BLOOD CELL COUNT 4.21 3.80 - 5.10 Million/uL [facility] HEMOGLOBIN 12.7 11.7 - 15.5 g/dL [facility] HEMATOCRIT 37.3 35.0 - 45.0 % [facility] MCV 88.6 80.0 - 100.0 fL [facility] MCH 30.2 27.0 - 33.0 pg [facility] MCHC 34.0 32.0 - 36.0 g/dL [facility] Comment: For adults, a slight decrease in the calculated MCHC value (in the range of 30 to 32 g/dL) is most likely not clinically significant; however, it should be interpreted with caution in correlation with other red cell parameters and the patient's clinical condition. RDW 13.5 11.0 - 15.0 % [facility] PLATELET COUNT 230 140 - 400 Thousand/u L [facility] MPV 11.2 7.5 - 12.5 fL [facility] ABSOLUTE NEUTROPHILS 4,188 1,500 - 7,800 cells/uL [facility] ABSOLUTE LYMPHOCYTES 1,963 850 - 3,900 cells/uL [facility] ABSOLUTE MONOCYTES 389 200 - 950 cells/uL [facility] ABSOLUTE EOSINOPHILS 101 15 - 500 cells/uL [facility] ABSOLUTE BASOPHILS 60 0 - 200 cells/uL [facility] NEUTROPHILS 62.5 % [facility] LYMPHOCYTES 29.3 % [facility] MONOCYTES 5.8 % [facility] EOSINOPHILS 1.5 % [facility] BASOPHILS 0.9 % [facility] Blood BLOOD SPECIMEN / Unknown 04/07/2025 9:46 AM CDT 04/07/2025 9:48 AM CDT Narrative [facility] - 04/08/2025 4:18 AM CDT FASTING:NO FASTING: NO Charlene Parry MD HEMATOLOGY Final Resul t [facility] [address] [place] [address], [place] [phone] [facility] [address] [place] [address] * LIPASE (04/07/2025 9:46 AM CDT) LIPASE 30 7 - 60 U/L [facility] Blood BLOOD SPECIMEN / Unknown 04/07/2025 9:46 AM CDT 04/07/2025 9:48 AM CDT Narrative [facility] - 04/08/2025 5:18 AM CDT FASTING:NO FASTING: NO Charlene Parry MD CHEMISTRY Final Resul t Performing Organization Address [facility]/ZIP Co de Phone Number [facility] [address] [place] [address], [place] [phone] [facility] [address] [place] [address] * FERRITIN (04/07/2025 9:46 AM CDT) FERRITIN 33 16 - 154 ng/mL [facility] Blood BLOOD SPECIMEN / Unknown 04/07/2025 9:46 AM CDT 04/07/2025 9:48 AM CDT Narrative [facility] - 04/08/2025 5:43 AM CDT FASTING:NO FASTING: NO Charlene Parry MD CHEMISTRY Final Resul t [facility] [address] [place] [address], [place] [phone] [email or web address] [address] [place] [address] * COMP METABOLIC PANEL (04/07/2025 9:46 AM CDT) GLUCOSE 102 65 - 139 mg/dL [email or web address] Comment: Non-fasting reference interval UREA NITROGEN (BUN) 9 7 - 25 mg/dL [facility] CREATININE 0.53 0.50 - 0.97 mg/dL [facility] EGFR 121 > OR = 60 mL/min/1. 73m2 [facility] BUN/CREATININE RATIO SEE NOTE: (calc) [facility] Comment: Not Reported: BUN and Creatinine are within reference range. SODIUM 137 135 - 146 mmol/L [facility] POTASSIUM 4.1 3.5 - 5.3 mmol/L [facility] CHLORIDE 106 98 - 110 mmol/L [facility] CARBON DIOXIDE 24 20 - 32 mmol/L [facility] CALCIUM 8.8 8.6 - 10.2 mg/dL [facility] PROTEIN, TOTAL 6.7 6.1 - 8.1 g/dL [facility] ALBUMIN 3.9 3.6 - 5.1 g/dL [facility] GLOBULIN 2.8 1.9 - 3.7 g/dL (calc) [facility] ALBUMIN/GLOBULIN RATIO 1.4 1.0 - 2.5 (calc) [facility] BILIRUBIN, TOTAL 0.6 0.2 - 1.2 mg/dL [facility] ALKALINE PHOSPHATASE 84 31 - 125 U/L [facility] AST 18 10 - 30 U/L [facility] ALT 27 6 - 29 U/L [facility] Blood BLOOD SPECIMEN / Unknown 04/07/2025 9:46 AM CDT 04/07/2025 9:48 AM CDT Narrative [facility] - 04/08/2025 5:18 AM CDT FASTING:NO FASTING: NO us Charlene Parry MD CHEMISTRY Final Resul t [facility] [address] [place] [address], [place] [phone] [facility] [address] [place] [address] * ANTI HCV (06/18/2023 10:25 AM CDT) HEPATITIS C ANTIBODY Non-Reacti ve Non-React brandon 06/18/2023 7:17 PM CDT [facility] Comment:Please note, per www .CDC.gov: If [...] Parry MD SEND OUTS Final Resul t Performing Organization Address City/[facility]/ZIP Co de Phone Number [facility] SENDOUT INTERNAL ZIP [address] [place] [address] * ANTI HIV 1/2 (10/02/2021 2:01 PM LICENSED MARINE ENGINEER) HIV-1/HIV-2 ANTIBODY Non-Reacti ve Non-Reacti ve 10/02/2021 10:27 PM LICENSED MARINE ENGINEER [facility] Comment:HIV-1 p24 and HIV-1/ HIV-2 Ab not detected. Blood BLOOD SPECIMEN / Unknown Butterfly / Unknown 10/02/2021 2:01 PM LICENSED MARINE ENGINEER 10/02/2021 2:01 PM LICENSED MARINE ENGINEER us Pam Boyd MD SEND OUTS Final Res ult [facility] [address] [place] [address], * HPV HIGH RISK (08/07/2021 1:45 PM CDT) TYPE 16 Negative Negative 08/09/2021 11:32 AM CDT [facility] TYPE 18 Negative Negative 08/09/2021 11:32 AM CDT [facility] TRA LAB[facility]ATORY OTHER HIGH RISK TYPES Negative Negative 08/09/2021 11:32 AM CDT [facility] Other (Cervical) Non-Blood / Unknown 08/07/2021 1:45 PM CDT 08/08/2021 9:10 AM CDT Narrative [facility] - 08/09/2021 11:32 AM CDT HPV types 16, 18, 31, 33, 35, 39, 45, 51, 52, 56, 58, 59, 66 and 68 DNA were undetectable or below the pre-set threshold. Methodology: Jennifer Romulo 4800 HPV Test us Charlene Parry MD MICROBIOLOGY Final Resul t [facility] [address] [place] [address], from Last 3 Months or Most Recently Relevant to Health Maintenance Insurance [facility] [place] Care Teams Dealer Accounts Investigator Relationship Specialty Start Date End Date Charlene Parry MD [address] [place] [id number] PCP - General Family Practice 09/30/16
[2025-06-03 16:11] VITALS: BP 100/63; PULSE 69; RESP 18; TEMP 36.6; O2SAT 97; BMI 30.9
--- NOTE | 2025-06-03 17:25 | ED.GENADULT ---
HPI - General Adult General Chief complaint: Insect Bite Stated complaint: bitten by animal in left leg Time Seen by Provider: 06/03/25 15:53 History of Present Illness HPI narrative: Patient reports being bitten by some type of insect a low shows no what she slapped her leg when she was bitten this is in the left medial proximal thigh. She now has a reddened raised warm tender area that is about the size of a baseball. There is no obvious stinger still present or other abnormality. No ascending cellulitic streaking or lymphangitic spread of infection. She generally quite healthy. Does not recall her last tetanus shot. Takes Naprosyn p.r.n.. Related Data Home Medications ?Medication ?Instructions ?Recorded ?Confirmed naproxen sodium 220 mg tablet 220 mg PO BID PRN 06/03/25 06/03/25 Allergies Allergy/AdvReac Type Severity Reaction Status Date / Time No Known Drug Allergies Allergy Verified 12/13/24 22:56 Review of Systems Status of ROS: Reports: 6 or more systems reviewed and unremarkable except as noted in History and below PFSH PFSH Social History Smoking Status: Never smoker Do you use any of these nicotine containing products: None Second hand tobacco smoke exposure: No How often do you have a drink containing alcohol: monthly or less How many standard drinks containing alcohol do you have on a typical day: 1 or 2 How often do you have six or more drinks on one occasion: Less than monthly AUDIT-C Alcohol total score: 2 Non-prescribed substance use: denies use service: No Exam Narrative: Exam Narrative: Objective afebrile Baseball size reddened areas cellulitic change in a bite from her bite of an insect on the left medial thigh. The mildly tender mildly warm. No streaking. No evidence of DVT or other concern. Const: Vital Signs, click to edit/add: Vital Signs - 24 hr 06/03/25 16:11 Temperature 97.8 F Pulse Rate [Right Pulse Oximeter] 69 Respiratory Rate 18 Blood Pressure [Ri ght Upper Arm] 100/63 Pulse Oximetry 97 Oxygen Delivery Me thod Room Air Course Vital Signs Vital signs: Initial Vital Signs Temperature 97.8 F 06/03/25 16:11 Temperature Source Temporal Artery Scan 06/03/25 16:11 Pulse Rate 69 06/03/25 16:11 Respiratory Rate 18 06/03/25 16:11 Blood Pressure 100/63 06/03/25 16:11 Blood Pressure Mean 75 06/03/25 16:11 Blood Pressure Position Sitting 06/03/25 16:11 Pulse Oximetry 97 06/03/25 16:11 Oxygen Delivery Method Room Air 06/03/25 16:11 Vital Signs Temperature 97.8 F 06/03/25 16:11 Pulse Rate 69 06/03/25 16:11 Respiratory Rate 18 06/03/25 16:11 Blood Pressure 100/63 06/03/25 16:11 Pulse Oximetry 97 06/03/25 16:11 Oxygen Delivery Method Room Air 06/03/25 16:11 Temperature 97.8 F 06/03/25 16:11 Pulse Rate 69 06/03/25 16:11 Respiratory Rate 18 06/03/25 16:11 Blood Pressure 100/63 06/03/25 16:11 Pulse Oximetry 97 06/03/25 16:11 Oxygen Delivery Method Room Air 06/03/25 16:11 Medications Administered Medications: Discontinued Medications Generic Name Dose Route Start Last Admin Trade Name Freq PRN Reason Stop Dose Admin Ceftriaxone Sodium 500 mg 06/03/25 17:20 06/03/25 17:39 Ceftriaxone 500 Mg Vial IM 06/03/25 17:21 500 mg ONCE ONE Administration Lidocaine HCl 1 ml 06/03/25 17:20 06/03/25 17:40 Lidocaine 1% 5 Ml (Pf) 5 Ml Vial IM 1 ml DIRECTED PRN Administration Pain Medical Decision Making MDM Narrative Medical decision making narrative: 40-year-old female with left thigh cellulitis from an insect bite. At this point would recommend Benadryl 25 mg t.i.d. over the next couple of days, Keflex 500 q.i.d. x7 days, will give her an injection Rocephin 500 mg IM today. Will write this through [facility] med[facility]. Warm pack the area as well several times a day may take a warm bath as well several times a day. She and her a couple this was relayed through jacquard loom fixer. Recheck if worsening or changes. We are checking on her tetanus status as well Discharge Plan Discharge Clinical Impression: Cellulitis of left thigh, Insect bite Patient Disposition: Home w/ Parent or Adult Condition: Stable Additional Instructions: Warm pack the area which is hot rocks rag or bathe in a warm tub several times a day for the next few days. Benadryl 25-50 mg 3 times a day for 2-3 days, cautioned about sedative affect, Keflex 500 q.i.d. x5 days. Recheck not prove improving or getting worse. Activity Level: Light activity Discharge Diet: Regular Prescriptions: No Action naproxen sodium 220 mg tablet 220 mg PO BID PRN Follow Up/Referrals: Charlene Parry MD [Primary Care Provider, Family Practice] Stand Alone Forms: [facility] Info Instructions
[2025-06-03] MEDS: cefTRIAXone 500 MG VIAL IM (17:39)
[2025-06-03] MEDS: LIDOCAINE 1% 5 ml (pf) 5 ML VIAL 1 ML IM (17:40)
== END 2025-06-03 17:59 | disposition home or self-care (01) ==
LOC: ED 17:26
PROVIDERS: Emergency Provider Family Medicine; PCP Family Medicine
DX: S70.361A Insect bite (nonvenomous), right thigh, initial encounter (principal); L03.115 Cellulitis of right lower limb
CPT/HCPCS: 96372; 99283; 99284; J0696